=== PATIENT | male | born 1970 | race African-American/Black ===

== ENCOUNTER 2018-02-21 20:37 | Inpatient (IN) | payer OTHER ==
--- NOTE | 2018-02-21 21:00 | HP ---
COWS - Scale Resting Pulse: 1= [place] 81-100 Sweatin=Flushed/Facial Moisture Restless Observation: 1= Difficult to Sit Still Pupil Size: 1= Pupils >than Normal Bone or Joint Aches: 2= Severe Diffuse Aches Runny Nose/ Eye Tearin= Nasal Congestion GI Upset > 30mins: 2= Nausea/Diarrhea Tremor Observation: 2= Slight Tremor Visible Yawning Observation: 1= 1-2x During Session Anxiety or Irritability: 1=Feels Anxious/Irritable Goose Flesh Skin: 0=Smooth Skin COWS Score: 14 CIWA Score - Admission Criteria [facility] Guidelines: Admission for Medically Managed Detox: Requires at least one of the followin. CIWA greater than 12 2. Seizures within the past 24 hours 3. Delirium tremens within the past 24 hours 4. Hallucinations within the past 24 hours 5. Acute intervention needed for co occurring medical disorder 6. Acute intervention needed for co occurring psychiatric disorder 7. Severe withdrawal that cannot be handled at a lower level of care (continued vomiting, continued diarrhea, abnormal vital signs) requiring intravenous medication and/or fluids 8. Admission ROS S - HPI Chief Complaint: DEPENDENT ON HEROIN, PCP AND OCC. COCAINE Allergies/Adverse Reactions: Allergies Allergy/AdvReac Type Severity Reaction Status Date / Time No Known Allergies Allergy Verified 07/09/15 21:12 History of Present Illness: THE PT. IS REQUESTING ADMISSION TO THE DETOX AND REHAB. UNITS AND CAME FOR H AND PE Exam Limitations: No Limitations - Ebola screening Have you traveled outside of the country in the last 21 days: No (N) Have you had contact with anyone from an Ebola affected area: No Have you been sick,other than usual withdrawal symptoms: No Do you have a fever: No - Review of Systems Constitutional: See HPI, Loss of Appetite, Malaise, Weakness, Unintentional Wgt. Loss EENT: reports: See HPI Respiratory: reports: See HPI Cardiac: reports: See HPI GI: reports: See HPI, Nausea, Poor Appetite, Poor Fluid Intake, Abdominal cramping : reports: See HPI, Frequency, Urgency Musculoskeletal: reports: See HPI, Muscle Pain, Muscle Weakness Integumentary: reports: See HPI, Sweating Neuro: reports: See HPI, Headache, Tremors, Weakness Endocrine: reports: See HPI, Increased Thirst, Increased Urine, Unexplained Weight Loss Hematology: reports: See HPI Psychiatric: reports: Judgement Intact, Orientated x3, Anxious, Depressed Patient History - Patient Medical History Hx Asthma: No Hx Chronic Obstructive Pulmonary Disease (COPD): No Hx Cardiac Disorders: No Hx Hypertension: No Hx Seizures: No Hx Diabetes: Yes Hx Gastrointestinal Disorders: No Hx Genitourinary Disorders: No Hx Sexually Transmitted Disorders: No Hx Renal Disease (ESRD): No Hx Human Immunodeficiency Virus (HIV): No Hx Hepatitis C: No Hx Depression: Yes (ANXIETY DISORDER, ADHD AND PTSD) Hx Suicide Attempt: No - Patient Surgical History Past Surgical History: Yes Hx Neurologic Surgery: Yes (FOR HYDROCEPHALUS) Hx Orthopedic Surgery: Yes (SPINAL FUSION AT [facility] 02/2010) - PPD History Date: 07/11/15 - Smoking Cessation Smoking history: Current every day smoker Have you smoked in the past 12 months: Yes Aproximately how many cigarettes per day: 15 Hx Chewing Tobacco Use: No Initiated information on smoking cessation: Yes 'Breaking Loose' booklet given: 02/21/18 - Substances Abused Heroin Route: Injection Frequency: Daily Amount used: 10B/D Age of first use: 31 Date of Last Use: 02/20/18 Cocaine Route: Smoking Frequency: 1-3 times last 30 days Amount used: $20/ONCE IN 3 MONTHS Age of first use: 21 Date of Last Use: 02/20/18 PCP Route: Smoking Frequency: Daily Amount used: 1-2 J/D Age of first use: 21 Date of Last Use: 02/21/18 Family Disease History - Family Disease History Family History: Denies Admission Physical Exam [facility] - Physical General Appearance: Yes: No Apparent Distress, Appropriately Dressed, Thin, Tremorous, Anxious HEENTM: Yes: Hearing grossly Normal, Normocephalic, Normal Voice, PUMA, Pharynx Normal Respiratory: Yes: Chest Non-Tender, Lungs Clear, Decreased Breath Sounds, No Respiratory Distress, No Accessory Muscle Use Neck: Yes: No masses,lesions,Nodules, Supple, Trachea in good position Breast: Yes: Breast Exam Deferred, Axillae without masses Cardiology: Yes: Regular Rhythm, S1, S2, Tachycardia Abdominal: Yes: Normal Bowel Sounds, Non Tender, Flat, Soft Back: Yes: Normal Inspection Musculoskeletal: Yes: full range of Motion, Muscle Pain, Muscle weakness Extremities: Yes: Normal Capillary Refill, Normal Range of Motion, Non-Tender, Tremors Neurological: Yes: plant hr manager II-XII NML intact, Fully Oriented, Alert, Motor Strength 5/5, Normal Response, Depressed Affect Integumentary: Yes: Normal Color, Warm, Moist, Track Cohen Lymphatic: Yes: Within Normal Limits - Diagnostic (1) PCP dependence Current Visit: Yes Status: Chronic (2) Nicotine dependence Current Visit: No Status: Chronic Qualifiers: Nicotine product type: cigarettes Substance use status: uncomplicated Qualified Code(s): F17.210 - Nicotine dependence, cigarettes, uncomplicated (3) Opioid dependence with withdrawal Current Visit: No Status: Chronic (4) ADHD (attention deficit hyperactivity disorder) Current Visit: No Status: Chronic Qualifiers: Attention deficit-hyperactivity disorder type: unspecified Qualified Code(s ): F90.9 - Attention-deficit hyperactivity disorder, unspecified type (5) Anxiety and depression Current Visit: No Status: Chronic (6) Diabetes 1.5, managed as type 2 Current Visit: No Status: Chronic (7) Heroin dependence Current Visit: No Status: Chronic (8) PTSD (post-traumatic stress disorder) Current Visit: No Status: Chronic Cleared for Admission S - Detox or Rehab [facility] Level of Care: Medically Supervised Detox Regimen/Protocol: Methadone S Breath Alcohol Content Breath Alcohol Content: 0
[2018-02-21] MEDS ORDERED: MENTHOL/PHENOL 1 EACH UD MM PRN (21:06)
[2018-02-21] MEDS ORDERED: MAGNESIUM HYDROX 2400MG/30ML ORAL SUSPENSION 30 ML CUP PO PRN (21:06)
[2018-02-21] MEDS ORDERED: MAGNESIUM CITRATE 300 ML BOTTLE PO PRN (21:06)
[2018-02-21] MEDS ORDERED: P-EPHED 60MG/TRIPROLIDI 2.5MG TABLET PO PRN (21:06)
[2018-02-21] MEDS ORDERED: LOPERAMIDE HCL 2 MG CAPSULE PO PRN (21:06)
[2018-02-21] MEDS ORDERED: METHADONE HCL 10 MG TABLET (FOR DETOX USE ONLY) PO ONE ×2 (21:06→23:00)
[2018-02-21] MEDS ORDERED: guaiFENesin/D-METHORPHAN HB 10 ML UNIT-DOSE CUPS PO PRN (21:06)
[2018-02-21 21:27] VITALS: BMI 22.2
[2018-02-21 23:07] LABS: URINE APPEARANCE CLEAR; URINE BILIRUBIN NEGATIVE (<2.0 mg/dL); URINE COLOR STRAW; URINE GLUCOSE (UA) 3+ (NEGATIVE); URINE KETONE TRACE (NEGATIVE); URINE LEUK ESTERASE NEGATIVE (NEGATIVE); URINE NITRITE NEGATIVE (NEGATIVE); URINE PROTEIN NEGATIVE (NEGATIVE); URINE UROBILINOGEN NEGATIVE mg/dL (0.2-1.0)
[2018-02-21] MEDS: INSULIN SLIDING SCALE (NOVOLOG) 1 VIAL SQ SCH (23:26)
[2018-02-21] MEDS: THIAMINE HCL 100 MG TABLET (FP) PO SCH (23:28)
[2018-02-21] MEDS: diazePAM 5 MG TABLET PO PRN (23:28)
[2018-02-22] MEDS: INSULIN SLIDING SCALE (NOVOLOG) 1 VIAL SQ SCH ×4 (06:57→22:31)
[2018-02-22] MEDS ORDERED: INSULIN SLIDING SCALE (NOVOLOG) 1 VIAL SQ ONE ×3 (07:05→16:24)
[2018-02-22] MEDS ORDERED: METHADONE HCL 10 MG TABLET (FOR DETOX USE ONLY) PO ONE (10:00)
[2018-02-22 10:20] LABS: BASO % 0.7 % (0-2.0); EOS % 2.2 % (0-4.5); HEMOGLOBIN 12.9 GM/dL (11.7-16.9); LYMPH % 48.9 % (8-40); MCH 24.3 pg (25.7-33.7); MCHC 31.5 g/dl (32.0-35.9); MEAN CELL VOLUME 77.1 fl (80-96); MEAN PLT VOLUME 6.6 fl (7.5-11.1); MONO % 5.6 % (3.8-10.2); NEUT % 42.6 % (42.8-82.8); PLATELET COUNT 364 K/MM3 (134-434); RBC 5.32 M/mm3 (4.00-5.60); RDW 14.8 % (11.9-15.9)
[2018-02-22] MEDS: NICOTINE 21 MG/24 HOURS TOPICAL PATCH TD SCH (10:27)
[2018-02-22] MEDS: PRENATAL VITAMINS W/ FOLIC ACID TABLET (FP) PO SCH (10:27)
[2018-02-22] MEDS: diazePAM 5 MG TABLET PO PRN ×3 (10:27→22:30)
[2018-02-22 10:36] LABS: ALBUMIN 3.4 g/dl (3.4-5.0); ALK PHOS 143 U/L (45-117); ANION GAP 10 MMOL/L (8-16); BILIRUBIN,TOTAL 0.3 mg/dL (0.2-1); BLOOD UREA NITROGEN 20 mg/dL (7-18); CALCIUM 8.8 mg/dL (8.5-10.1); CHLORIDE 97 mmol/L (98-107); CO2 26 mmol/L (21-32); POTASSIUM 4.2 mmol/L (3.5-5.1); SGOT/AST 14 U/L (15-37); SGPT/ALT 24 U/L (13-61); SODIUM 133 mmol/L (136-145); TOT PROT 6.3 g/dl (6.4-8.2)
[2018-02-22 11:18] LABS: GLUCOSE,RANDOM 370 mg/dL (74-106)
[2018-02-22 12:27] LABS: ANISOCYTOSIS 1+; MACROCYTOSIS 0; PLATELET ESTIMATE NORMAL
--- NOTE | 2018-02-22 14:44 | PN ---
BHS COWS - Scale Resting Pulse: 0= [place] 80 or Below Sweatin=Flushed/Facial Moisture Restless Observation: 1= Difficult to Sit Still Pupil Size: 0= Normal to Room Light Bone or Joint Aches: 0= None Runny Nose/ Eye Tearin= None GI Upset > 30mins: 0= None Tremor Observation of Outstretched Hands: 2= Slight Tremor Visible Yawning Observation: 0= None Anxiety or Irritability: 1=Feels Anxious/Irritable Goose Flesh Skin: 0=Smooth Skin COWS Score: 6 BHS Progress Note (SOAP) Subjective: States sweating. C/o increased anxiety. Denies nausea/vomiting. Objective: A&O x 3. Mild tremors of outstretched hands. Abd S/NT/BS+ Vital Signs 02/22/18 02/22/18 09:04 13:19 Temperature 96.9 F L 97.8 F Pulse Rate 64 84 Respiratory 18 18 Rate Blood Pressure 90/56 L 95/70 Laboratory Last Values WBC 10.0 K/mm3 (4.0-10.0) 02/22/18 07:00 RBC 5.32 M/mm3 (4.00-5.60) 02/22/18 07:00 Hgb 12.9 GM/dL (11.7-16.9) 02/22/18 07:00 Hct 41.0 % (35.4-49) 02/22/18 07:00 MCV 77.1 fl (80-96) L 02/22/18 07:00 MCH 24.3 pg (25.7-33.7) L D 02/22/18 07:00 MCHC 31.5 g/dl (32.0-35.9) L 02/22/18 07:00 RDW 14.8 % (11.9-15.9) D 02/22/18 07:00 Plt Count 364 K/MM3 (134-434) 02/22/18 07:00 MPV 6.6 fl (7.5-11.1) L 02/22/18 07:00 Absolute Neuts (auto) 4.3 K/mm3 (1.5-8.0) 02/22/18 07:00 Neutrophils % 42.6 % (42.8-82.8) L 02/22/18 07:00 Neutrophils % (Manual) 45.5 % (42.8-82.8) 02/22/18 07:00 Band Neutrophils % 0.0 % 02/22/18 07:00 Lymphocytes % 48.9 % (8-40) H 02/22/18 07:00 Lymphocytes % (Manual) 43.6 % (8-40) H 02/22/18 07:00 Monocytes % 5.6 % (3.8-10.2) 02/22/18 07:00 Monocytes % (Manual) 5 % (3.8-10.2) 02/22/18 07:00 Eosinophils % 2.2 % (0-4.5) 02/22/18 07:00 Eosinophils % (Manual) 3.0 % (0-4.5) 02/22/18 07:00 Basophils % 0.7 % (0-2.0) 02/22/18 07:00 Basophils % (Manual) 1.0 % (0-2.0) 02/22/18 07:00 Myelocytes % (Man) 0 % (0-2) 02/22/18 07:00 Promyelocytes % (Man) 0 % (0-2) 02/22/18 07:00 Blast Cells % (Manual) 0 % (0-0) 02/22/18 07:00 Nucleated RBC % 0 % (0-0) 02/22/18 07:00 Metamyelocytes 0 % (0-2) 02/22/18 07:00 Hypochromia 0 02/22/18 07:00 Platelet Estimate Normal 02/22/18 07:00 Polychromasia 0 02/22/18 07:00 Poikilocytosis 0 02/22/18 07:00 Anisocytosis 1+ 02/22/18 07:00 Microcytosis 1+ 02/22/18 07:00 Macrocytosis 0 02/22/18 07:00 Sodium 133 mmol/L (136-145) L 02/22/18 07:00 Potassium 4.2 mmol/L (3.5-5.1) 02/22/18 07:00 Chloride 97 mmol/L (98-107) L 02/22/18 07:00 Carbon Dioxide 26 mmol/L (21-32) 02/22/18 07:00 Anion Gap 10 MMOL/L (8-16) 02/22/18 07:00 BUN 20 mg/dL (7-18) H 02/22/18 07:00 Creatinine 1.0 mg/dL (0.55-1.3) 02/22/18 07:00 Creat Clearance w eGFR > 60 (>60) 02/22/18 07:00 POC Glucometer 380 UNITS (80-120) 02/22/18 11:23 Random Glucose 370 mg/dL (74-106) H* 02/22/18 07:00 Calcium 8.8 mg/dL (8.5-10.1) 02/22/18 07:00 Total Bilirubin 0.3 mg/dL (0.2-1) 02/22/18 07:00 AST 14 U/L (15-37) L 02/22/18 07:00 ALT 24 U/L (13-61) 02/22/18 07:00 Alkaline Phosphatase 143 U/L (45-117) H 02/22/18 07:00 Total Protein 6.3 g/dl (6.4-8.2) L 02/22/18 07:00 Albumin 3.4 g/dl (3.4-5.0) 02/22/18 07:00 Urine Color Straw 02/21/18 22:33 Urine Appearance Clear 02/21/18 22: Urine pH 6.0 (5.0-8.0) 02/21/18 22:33 Ur Specific [place] 1.038 (1.010-1.035) H 02/21/18 22:33 Urine Protein Negative (NEGATIVE) 02/21/18 22:33 Urine Glucose (UA) 3+ (NEGATIVE) H 02/21/18 22:33 Urine Ketones Trace (NEGATIVE) H 02/21/18 22:33 Urine Blood Negative (NEGATIVE) 02/21/18 22: Urine Nitrite Negative (NEGATIVE) 02/21/18 22: Urine Bilirubin Negative (<2.0 mg/dL) 02/21/18 22: Urine Urobilinogen Negative mg/dL (0.2-1.0) 02/21/18 22:33 Ur Leukocyte Esterase Negative (NEGATIVE) 02/21/18 22: RPR Titer Nonreactive (NONREACTIVE) 02/22/18 07:00 Labs reviewed. Assessment: Withdrawal symptoms Uncontrolled DM Plan: Continue detox protocol Continue sliding scale insulin coverage. Begin Metformin 500 mg BID in am.
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
[2018-02-22] MEDS: THIAMINE HCL 100 MG TABLET (FP) PO SCH (22:30)
[2018-02-22] MEDS: QUEtiapine FUMARATE 50 MG TABLET PO SCH ×2 (22:30→22:50)
--- NOTE | 2018-02-22 23:53 | EKG ---
Test Reason : Blood Pressure : / mmHG Vent. Rate : 069 BPM Atrial Rate : 069 BPM P-R Int : 146 ms QRS Dur : 080 ms QT Int : 396 ms P-R-T Axes : 071 074 075 degrees QTc Int : 424 ms NORMAL SINUS RHYTHM EARLY REPOLARIZATION NORMAL ECG NO PREVIOUS ECGS AVAILABLE Confirmed by JIMI DOTSON MD ([id number]) on 02/22/2018 11:53:37 PM Referred By: Confirmed By:JIMI DOTSON MD
[2018-02-23] MEDS: diazePAM 5 MG TABLET PO PRN ×3 (05:05→21:00)
[2018-02-23] MEDS ORDERED: metFORMIN HCL 500 MG TABLET (FP) PO SCH (07:00)
[2018-02-23] MEDS ORDERED: INSULIN SLIDING SCALE (NOVOLOG) 1 VIAL SQ ONE ×2 (07:45→11:35)
[2018-02-23] MEDS: INSULIN SLIDING SCALE (NOVOLOG) 1 VIAL SQ SCH ×4 (07:54→23:36)
[2018-02-23] MEDS ORDERED: METHADONE HCL 5 MG TABLET (FOR DETOX USE ONLY) PO ONE (10:00)
[2018-02-23] MEDS: PRENATAL VITAMINS W/ FOLIC ACID TABLET (FP) PO SCH (10:05)
[2018-02-23] MEDS: NICOTINE 21 MG/24 HOURS TOPICAL PATCH TD SCH (10:06)
--- NOTE | 2018-02-23 11:02 | PN ---
BHS COWS - Scale Resting Pulse: 1= [place] 81-100 Sweatin= Chills/Flushing Restless Observation: 3= Extraneous Movement Pupil Size: 0= Normal to Room Light Bone or Joint Aches: 2= Severe Diffuse Aches Runny Nose/ Eye Tearin= Runny Nose/Eyes GI Upset > 30mins: 3= Vomiting/Diarrhea Tremor Observation of Outstretched Hands: 2= Slight Tremor Visible Yawning Observation: 0= None Anxiety or Irritability: 2=Irritable/Anxious Goose Flesh Skin: 0=Smooth Skin COWS Score: 16 BHS Progress Note (SOAP) Subjective: Sweating, runny nose, stomach ache, interrupted sleep Objective: 02/23/18 10:55 Last Vital Signs Temp Pulse Resp BP Pulse Ox 98.6 F 88 18 103/66 02/23/18 10:02 02/23/18 10:02 02/23/18 10:02 02/23/18 10:02 Laboratory Tests 02/21/18 02/21/18 02/21/18 21:49 22:33 23:23 WBC RBC Hgb Hct MCV MCH MCHC RDW Plt Count MPV Absolute Neuts (auto) Neutrophils % Neutrophils % (Manual) Band Neutrophils % Lymphocytes % Lymphocytes % (Manual) Monocytes % Monocytes % (Manual) Eosinophils % Eosinophils % (Manual) Basophils % Basophils % (Manual) Myelocytes % (Man) Promyelocytes % (Man) Blast Cells % (Manual) Nucleated RBC % Metamyelocytes Hypochromia Platelet Estimate Polychromasia Poikilocytosis Anisocytosis Microcytosis Macrocytosis Sodium Potassium Chloride Carbon Dioxide Anion Gap BUN Creatinine Creat Clearance w eGFR POC Glucometer 447 514 Random Glucose Calcium Total Bilirubin AST ALT Alkaline Phosphatase Total Protein Albumin Urine Color Straw Urine Appearance Clear Urine pH 6.0 Ur Specific [place] 1.038 H Urine Protein Negative Urine Glucose (UA) 3+ H Urine Ketones Trace H Urine Blood Negative Urine Nitrite Negative Urine Bilirubin Negative Urine Urobilinogen Negative Ur Leukocyte Esterase Negative RPR Titer 02/22/18 02/22/18 02/22/18 06:52 07:00 07:00 WBC RBC Hgb Hct MCV MCH MCHC RDW Plt Count MPV Absolute Neuts (auto) Neutrophils % Neutrophils % (Manual) Band Neutrophils % Lymphocytes % Lymphocytes % (Manual) Monocytes % Monocytes % (Manual) Eosinophils % Eosinophils % (Manual) Basophils % Basophils % (Manual) Myelocytes % (Man) Promyelocytes % (Man) Blast Cells % (Manual) Nucleated RBC % Metamyelocytes Hypochromia Platelet Estimate Polychromasia Poikilocytosis Anisocytosis Microcytosis Macrocytosis Sodium 133 L Potassium 4.2 Chloride 97 L Carbon Dioxide 26 Anion Gap 10 BUN 20 H Creatinine 1.0 Creat Clearance w eGFR > 60 POC Glucometer > 600 Random Glucose 370 H* Calcium 8.8 Total Bilirubin 0.3 AST 14 L ALT 24 Alkaline Phosphatase 143 H Total Protein 6.3 L Albumin 3.4 Urine Color Urine Appearance Urine pH Ur Specific [place] Urine Protein Urine Glucose (UA) Urine Ketones Urine Blood Urine Nitrite Urine Bilirubin Urine Urobilinogen Ur Leukocyte Esterase RPR Titer Nonreactive 02/22/18 02/22/18 02/22/18 07:00 11:23 16:22 WBC 10.0 RBC 5.32 Hgb 12.9 Hct 41.0 MCV 77.1 L MCH 24.3 L D MCHC 31.5 L RDW 14.8 D Plt Count 364 MPV 6.6 L Absolute Neuts (auto) 4.3 Neutrophils % 42.6 L Neutrophils % (Manual) 45.5 Band Neutrophils % 0.0 Lymphocytes % 48.9 H Lymphocytes % (Manual) 43.6 H Monocytes % 5.6 Monocytes % (Manual) 5 Eosinophils % 2.2 Eosinophils % (Manual) 3.0 Basophils % 0.7 Basophils % (Manual) 1.0 Myelocytes % (Man) 0 Promyelocytes % (Man) 0 Blast Cells % (Manual) 0 Nucleated RBC % 0 Metamyelocytes 0 Hypochromia 0 Platelet Estimate Normal Polychromasia 0 Poikilocytosis 0 Anisocytosis 1+ Microcytosis 1+ Macrocytosis 0 Sodium Potassium Chloride Carbon Dioxide Anion Gap BUN Creatinine Creat Clearance w eGFR POC Glucometer 380 313 Random Glucose Calcium Total Bilirubin AST ALT Alkaline Phosphatase Total Protein Albumin Urine Color Urine Appearance Urine pH Ur Specific [place] Urine Protein Urine Glucose (UA) Urine Ketones Urine Blood Urine Nitrite Urine Bilirubin Urine Urobilinogen Ur Leukocyte Esterase RPR Titer 02/22/18 02/22/18 02/23/18 21:34 23:54 07:40 WBC RBC Hgb Hct MCV MCH MCHC RDW Plt Count MPV Absolute Neuts (auto) Neutrophils % Neutrophils % (Manual) Band Neutrophils % Lymphocytes % Lymphocytes % (Manual) Monocytes % Monocytes % (Manual) Eosinophils % Eosinophils % (Manual) Basophils % Basophils % (Manual) Myelocytes % (Man) Promyelocytes % (Man) Blast Cells % (Manual) Nucleated RBC % Metamyelocytes Hypochromia Platelet Estimate Polychromasia Poikilocytosis Anisocytosis Microcytosis Macrocytosis Sodium Potassium Chloride Carbon Dioxide Anion Gap BUN Creatinine Creat Clearance w eGFR POC Glucometer 595 589 > 600 Random Glucose Calcium Total Bilirubin AST ALT Alkaline Phosphatase Total Protein Albumin Urine Color Urine Appearance Urine pH Ur Specific [place] Urine Protein Urine Glucose (UA) Urine Ketones Urine Blood Urine Nitrite Urine Bilirubin Urine Urobilinogen Ur Leukocyte Esterase RPR Titer Labs reviewed: elevated glucose due to DMT2, bun 20, UA: 3+ glucose Assessment: 02/23/18 10:58 Withdrawal symptoms Noted with hyperglycemia, azotemia and glycosuria Plan: Continue detox Hyperglycemia,secondary to DMT2: increase metformin to 1g PO bid, resume lantus 30 units sq qhs (give levemir while hospitalized as lantus not available), continue sliding scale insulin coverage and finger stick, continue to monitor Azotemia:encouraged to drink more water Glycosuria: encouraged PO water intake, repeat UA
[2018-02-23] MEDS ORDERED: Insulin (LOG) Aspart 100 UNITS/ML VIAL SQ ONE (11:15)
[2018-02-23 15:28] LABS: ANION GAP 10 MMOL/L (8-16); BLOOD UREA NITROGEN 21 mg/dL (7-18); CALCIUM 8.6 mg/dL (8.5-10.1); CHLORIDE 94 mmol/L (98-107); CO2 28 mmol/L (21-32); CREATININE 1.1 mg/dL (0.55-1.3); POTASSIUM 4.3 mmol/L (3.5-5.1); SODIUM 132 mmol/L (136-145)
[2018-02-23 15:42] LABS: GLUCOSE,RANDOM 487 mg/dL (74-106)
[2018-02-23] MEDS: metFORMIN HCL 500 MG TABLET (FP) PO SCH (17:47)
[2018-02-23] MEDS: INSULIN (LEVEMIR) 100 UNITS/ML UNITS SQ SCH (21:22)
[2018-02-23] MEDS: THIAMINE HCL 100 MG TABLET (FP) PO SCH (21:27)
[2018-02-23] MEDS: QUEtiapine FUMARATE 50 MG TABLET PO SCH (21:30)
[2018-02-24] MEDS: metFORMIN HCL 500 MG TABLET (FP) PO SCH ×2 (08:03→17:29)
[2018-02-24] MEDS: INSULIN SLIDING SCALE (NOVOLOG) 1 VIAL SQ SCH ×4 (08:07→22:49)
[2018-02-24] MEDS: PRENATAL VITAMINS W/ FOLIC ACID TABLET (FP) PO SCH (09:41)
[2018-02-24] MEDS: NICOTINE 21 MG/24 HOURS TOPICAL PATCH TD SCH (09:42)
[2018-02-24] MEDS ORDERED: METHADONE HCL 5 MG TABLET (FOR DETOX USE ONLY) PO ONE (10:00)
[2018-02-24] MEDS ORDERED: INSULIN SLIDING SCALE (NOVOLOG) 1 VIAL SQ ONE (11:27)
--- NOTE | 2018-02-24 14:49 | PN ---
[facility] Progress Note (SOAP) Subjective: Tremor, chills, sweating, interrupted sleep. Patient is noncompliant with finger sticks and with diabetic diet. Chairman educated patient about importance of managing his diabetes including adhering to diabetic diet, diabetic regimen, exercising as tolerated to maintain healthy weight and avoiding/decreasing sugary and starchy intake in preventing complications such as blindness, amputation and kidney failure. Patient verbalized understanding. Patient instructed to follow up with his PCP after discharge for management of his diabetes. Objective: 02/24/18 14:47 Last Vital Signs Temp Pulse Resp BP Pulse Ox 98 F 87 18 130/73 02/24/18 13:41 02/24/18 13:41 02/24/18 13:41 02/24/18 13:41 Laboratory Tests 02/21/18 02/21/18 02/21/18 21:49 22:33 23:23 WBC RBC Hgb Hct MCV MCH MCHC RDW Plt Count MPV Absolute Neuts (auto) Neutrophils % Neutrophils % (Manual) Band Neutrophils % Lymphocytes % Lymphocytes % (Manual) Monocytes % Monocytes % (Manual) Eosinophils % Eosinophils % (Manual) Basophils % Basophils % (Manual) Myelocytes % (Man) Promyelocytes % (Man) Blast Cells % (Manual) Nucleated RBC % Metamyelocytes Hypochromia Platelet Estimate Polychromasia Poikilocytosis Anisocytosis Microcytosis Macrocytosis Sodium Potassium Chloride Carbon Dioxide Anion Gap BUN Creatinine Creat Clearance w eGFR POC Glucometer 447 514 Random Glucose Calcium Total Bilirubin AST ALT Alkaline Phosphatase Total Protein Albumin Urine Color Straw Urine Appearance Clear Urine pH 6.0 Ur Specific [place] 1.038 H Urine Protein Negative Urine Glucose (UA) 3+ H Urine Ketones Trace H Urine Blood Negative Urine Nitrite Negative Urine Bilirubin Negative Urine Urobilinogen Negative Ur Leukocyte Esterase Negative RPR Titer 02/22/18 02/22/18 02/22/18 06:52 07:00 07:00 WBC RBC Hgb Hct MCV MCH MCHC RDW Plt Count MPV Absolute Neuts (auto) Neutrophils % Neutrophils % (Manual) Band Neutrophils % Lymphocytes % Lymphocytes % (Manual) Monocytes % Monocytes % (Manual) Eosinophils % Eosinophils % (Manual) Basophils % Basophils % (Manual) Myelocytes % (Man) Promyelocytes % (Man) Blast Cells % (Manual) Nucleated RBC % Metamyelocytes Hypochromia Platelet Estimate Polychromasia Poikilocytosis Anisocytosis Microcytosis Macrocytosis Sodium 133 L Potassium 4.2 Chloride 97 L Carbon Dioxide 26 Anion Gap 10 BUN 20 H Creatinine 1.0 Creat Clearance w eGFR > 60 POC Glucometer > 600 Random Glucose 370 H* Calcium 8.8 Total Bilirubin 0.3 AST 14 L ALT 24 Alkaline Phosphatase 143 H Total Protein 6.3 L Albumin 3.4 Urine Color Urine Appearance Urine pH Ur Specific [place] Urine Protein Urine Glucose (UA) Urine Ketones Urine Blood Urine Nitrite Urine Bilirubin Urine Urobilinogen Ur Leukocyte Esterase RPR Titer Nonreactive 02/22/18 02/22/18 02/22/18 07:00 11:23 16:22 WBC 10.0 RBC 5.32 Hgb 12.9 Hct 41.0 MCV 77.1 L MCH 24.3 L D MCHC 31.5 L RDW 14.8 D Plt Count 364 MPV 6.6 L Absolute Neuts (auto) 4.3 Neutrophils % 42.6 L Neutrophils % (Manual) 45.5 Band Neutrophils % 0.0 Lymphocytes % 48.9 H Lymphocytes % (Manual) 43.6 H Monocytes % 5.6 Monocytes % (Manual) 5 Eosinophils % 2.2 Eosinophils % (Manual) 3.0 Basophils % 0.7 Basophils % (Manual) 1.0 Myelocytes % (Man) 0 Promyelocytes % (Man) 0 Blast Cells % (Manual) 0 Nucleated RBC % 0 Metamyelocytes 0 Hypochromia 0 Platelet Estimate Normal Polychromasia 0 Poikilocytosis 0 Anisocytosis 1+ Microcytosis 1+ Macrocytosis 0 Sodium Potassium Chloride Carbon Dioxide Anion Gap BUN Creatinine Creat Clearance w eGFR POC Glucometer 380 313 Random Glucose Calcium Total Bilirubin AST ALT Alkaline Phosphatase Total Protein Albumin Urine Color Urine Appearance Urine pH Ur Specific [place] Urine Protein Urine Glucose (UA) Urine Ketones Urine Blood Urine Nitrite Urine Bilirubin Urine Urobilinogen Ur Leukocyte Esterase RPR Titer 02/22/18 02/22/18 02/23/18 21:34 23:54 07:40 WBC RBC Hgb Hct MCV MCH MCHC RDW Plt Count MPV Absolute Neuts (auto) Neutrophils % Neutrophils % (Manual) Band Neutrophils % Lymphocytes % Lymphocytes % (Manual) Monocytes % Monocytes % (Manual) Eosinophils % Eosinophils % (Manual) Basophils % Basophils % (Manual) Myelocytes % (Man) Promyelocytes % (Man) Blast Cells % (Manual) Nucleated RBC % Metamyelocytes Hypochromia Platelet Estimate Polychromasia Poikilocytosis Anisocytosis Microcytosis Macrocytosis Sodium Potassium Chloride Carbon Dioxide Anion Gap BUN Creatinine Creat Clearance w eGFR POC Glucometer 595 589 > 600 Random Glucose Calcium Total Bilirubin AST ALT Alkaline Phosphatase Total Protein Albumin Urine Color Urine Appearance Urine pH Ur Specific [place] Urine Protein Urine Glucose (UA) Urine Ketones Urine Blood Urine Nitrite Urine Bilirubin Urine Urobilinogen Ur Leukocyte Esterase RPR Titer 02/23/18 02/23/18 02/23/18 11:08 11:20 16:28 WBC RBC Hgb Hct MCV MCH MCHC RDW Plt Count MPV Absolute Neuts (auto) Neutrophils % Neutrophils % (Manual) Band Neutrophils % Lymphocytes % Lymphocytes % (Manual) Monocytes % Monocytes % (Manual) Eosinophils % Eosinophils % (Manual) Basophils % Basophils % (Manual) Myelocytes % (Man) Promyelocytes % (Man) Blast Cells % (Manual) Nucleated RBC % Metamyelocytes Hypochromia Platelet Estimate Polychromasia Poikilocytosis Anisocytosis Microcytosis Macrocytosis Sodium 132 L Potassium 4.3 Chloride 94 L Carbon Dioxide 28 Anion Gap 10 BUN 21 H Creatinine 1.1 Creat Clearance w eGFR > 60 POC Glucometer > 600 521 Random Glucose 487 H* Calcium 8.6 Total Bilirubin AST ALT Alkaline Phosphatase Total Protein Albumin Urine Color Urine Appearance Urine pH Ur Specific [place] Urine Protein Urine Glucose (UA) Urine Ketones Urine Blood Urine Nitrite Urine Bilirubin Urine Urobilinogen Ur Leukocyte Esterase RPR Titer 02/23/18 02/24/18 20:49 11:08 WBC RBC Hgb Hct MCV MCH MCHC RDW Plt Count MPV Absolute Neuts (auto) Neutrophils % Neutrophils % (Manual) Band Neutrophils % Lymphocytes % Lymphocytes % (Manual) Monocytes % Monocytes % (Manual) Eosinophils % Eosinophils % (Manual) Basophils % Basophils % (Manual) Myelocytes % (Man) Promyelocytes % (Man) Blast Cells % (Manual) Nucleated RBC % Metamyelocytes Hypochromia Platelet Estimate Polychromasia Poikilocytosis Anisocytosis Microcytosis Macrocytosis Sodium Potassium Chloride Carbon Dioxide Anion Gap BUN Creatinine Creat Clearance w eGFR POC Glucometer 501 585 Random Glucose Calcium Total Bilirubin AST ALT Alkaline Phosphatase Total Protein Albumin Urine Color Urine Appearance Urine pH Ur Specific [place] Urine Protein Urine Glucose (UA) Urine Ketones Urine Blood Urine Nitrite Urine Bilirubin Urine Urobilinogen Ur Leukocyte Esterase RPR Titer Labs reviewed Assessment: 02/24/18 14:47 Withdrawal symptoms Plan: Continue detox Encouraged PO water intake Continue diabetic regimen
[2018-02-24] MEDS: diazePAM 5 MG TABLET PO PRN (17:34)
[2018-02-24] MEDS: MAG HYDROX/AL HYDROX/SIMETH 30 ML UNIT-DOSE CUP PO PRN (19:57)
--- NOTE | 2018-02-24 20:27 | PN ---
[facility] Progress Note (SOAP) Subjective: C/o nausea and vomiting. Vomiting food and fluids. States it's because of withdrawal symptoms. Denies abdominal pain. Objective: A&O x 3. Abdomen soft. Afebrile. Vital Signs 02/24/18 02/24/18 13:41 17:46 Temperature 98 F 97.5 F L Pulse Rate 87 82 Respiratory 18 16 Rate Blood Pressure 130/73 100/64 CMP Sodium 132 mmol/L (136-145) L 02/23/18 11:20 Potassium 4.3 mmol/L (3.5-5.1) 02/23/18 11:20 Chloride 94 mmol/L (98-107) L 02/23/18 11:20 Carbon Dioxide 28 mmol/L (21-32) 02/23/18 11:20 Anion Gap 10 MMOL/L (8-16) 02/23/18 11:20 BUN 21 mg/dL (7-18) H 02/23/18 11:20 Creatinine 1.1 mg/dL (0.55-1.3) 02/23/18 11:20 Creat Clearance w eGFR > 60 (>60) 02/23/18 11:20 POC Glucometer 359 UNITS (80-120) 02/24/18 19:55 Random Glucose 487 mg/dL (74-106) H* 02/23/18 11:20 Calcium 8.6 mg/dL (8.5-10.1) 02/23/18 11:20 Total Bilirubin 0.3 mg/dL (0.2-1) 02/22/18 07:00 AST 14 U/L (15-37) L 02/22/18 07:00 ALT 24 U/L (13-61) 02/22/18 07:00 Alkaline Phosphatase 143 U/L (45-117) H 02/22/18 07:00 Total Protein 6.3 g/dl (6.4-8.2) L 02/22/18 07:00 Albumin 3.4 g/dl (3.4-5.0) 02/22/18 07:00 Labs reviewed. Assessment: Withdrawal symptoms. Vomiting. Plan: Continue detox. Tigan as prescribed. Hyperglycemia. Encourage avoidance of hi glucose food/drinks.
[2018-02-24] MEDS: TRIMETHOBENZAMIDE HCL 200MG/2ML INJ IM PRN (20:38)
[2018-02-24] MEDS ORDERED: INSULIN (NOVOLOG) ASPART 100 UNITS/ML 10ML VIAL SQ ONE (21:49)
[2018-02-24] MEDS: INSULIN (LEVEMIR) 100 UNITS/ML UNITS SQ SCH (22:16)
[2018-02-24] MEDS: QUEtiapine FUMARATE 50 MG TABLET PO SCH (22:35)
[2018-02-24] MEDS: MELATONIN 5 MG TABLETS PO PRN (22:49)
[2018-02-24] MEDS: hydrOXYzine PAMOATE 25 MG CAPSULE (FP) PO PRN (22:50)
[2018-02-24] MEDS ORDERED: ONDANSETRON *ODT* 4 MG TABLET SL ONE (23:03)
[2018-02-24] MEDS: THIAMINE HCL 100 MG TABLET (FP) PO SCH (23:14)
[2018-02-25] MEDS: hydrOXYzine PAMOATE 25 MG CAPSULE (FP) PO PRN (03:49)
[2018-02-25] MEDS: ACETAMINOPHEN 325 MG TABLET (FP) PO PRN (03:49)
[2018-02-25] MEDS: INSULIN SLIDING SCALE (NOVOLOG) 1 VIAL SQ SCH ×4 (07:18→21:28)
[2018-02-25] MEDS: metFORMIN HCL 500 MG TABLET (FP) PO SCH ×2 (07:18→16:34)
[2018-02-25] MEDS ORDERED: INSULIN SLIDING SCALE (NOVOLOG) 1 VIAL SQ ONE (07:21)
[2018-02-25] MEDS ORDERED: METHADONE HCL 10 MG TABLET (FOR DETOX USE ONLY) PO ONE (10:00)
[2018-02-25] MEDS: NICOTINE 21 MG/24 HOURS TOPICAL PATCH TD SCH (11:04)
[2018-02-25] MEDS: PRENATAL VITAMINS W/ FOLIC ACID TABLET (FP) PO SCH (11:04)
--- NOTE | 2018-02-25 11:58 | PN ---
[facility] Progress Note (SOAP) Subjective: Stomach ache, nausea, interrupted sleep Objective: 02/25/18 11:48 Last Vital Signs Temp Pulse Resp BP Pulse Ox 98.9 F 93 H 20 115/72 02/25/18 09:07 02/25/18 09:07 02/25/18 09:07 02/25/18 09:07 Laboratory Tests 02/21/18 02/21/18 02/21/18 21:49 22:33 23:23 WBC RBC Hgb Hct MCV MCH MCHC RDW Plt Count MPV Absolute Neuts (auto) Neutrophils % Neutrophils % (Manual) Band Neutrophils % Lymphocytes % Lymphocytes % (Manual) Monocytes % Monocytes % (Manual) Eosinophils % Eosinophils % (Manual) Basophils % Basophils % (Manual) Myelocytes % (Man) Promyelocytes % (Man) Blast Cells % (Manual) Nucleated RBC % Metamyelocytes Hypochromia Platelet Estimate Polychromasia Poikilocytosis Anisocytosis Microcytosis Macrocytosis Sodium Potassium Chloride Carbon Dioxide Anion Gap BUN Creatinine Creat Clearance w eGFR POC Glucometer 447 514 Random Glucose Calcium Total Bilirubin AST ALT Alkaline Phosphatase Total Protein Albumin Urine Color Straw Urine Appearance Clear Urine pH 6.0 Ur Specific [place] 1.038 H Urine Protein Negative Urine Glucose (UA) 3+ H Urine Ketones Trace H Urine Blood Negative Urine Nitrite Negative Urine Bilirubin Negative Urine Urobilinogen Negative Ur Leukocyte Esterase Negative RPR Titer 02/22/18 02/22/18 02/22/18 06:52 07:00 07:00 WBC RBC Hgb Hct MCV MCH MCHC RDW Plt Count MPV Absolute Neuts (auto) Neutrophils % Neutrophils % (Manual) Band Neutrophils % Lymphocytes % Lymphocytes % (Manual) Monocytes % Monocytes % (Manual) Eosinophils % Eosinophils % (Manual) Basophils % Basophils % (Manual) Myelocytes % (Man) Promyelocytes % (Man) Blast Cells % (Manual) Nucleated RBC % Metamyelocytes Hypochromia Platelet Estimate Polychromasia Poikilocytosis Anisocytosis Microcytosis Macrocytosis Sodium 133 L Potassium 4.2 Chloride 97 L Carbon Dioxide 26 Anion Gap 10 BUN 20 H Creatinine 1.0 Creat Clearance w eGFR > 60 POC Glucometer > 600 Random Glucose 370 H* Calcium 8.8 Total Bilirubin 0.3 AST 14 L ALT 24 Alkaline Phosphatase 143 H Total Protein 6.3 L Albumin 3.4 Urine Color Urine Appearance Urine pH Ur Specific [place] Urine Protein Urine Glucose (UA) Urine Ketones Urine Blood Urine Nitrite Urine Bilirubin Urine Urobilinogen Ur Leukocyte Esterase RPR Titer Nonreactive 02/22/18 02/22/18 02/22/18 07:00 11:23 16:22 WBC 10.0 RBC 5.32 Hgb 12.9 Hct 41.0 MCV 77.1 L MCH 24.3 L D MCHC 31.5 L RDW 14.8 D Plt Count 364 MPV 6.6 L Absolute Neuts (auto) 4.3 Neutrophils % 42.6 L Neutrophils % (Manual) 45.5 Band Neutrophils % 0.0 Lymphocytes % 48.9 H Lymphocytes % (Manual) 43.6 H Monocytes % 5.6 Monocytes % (Manual) 5 Eosinophils % 2.2 Eosinophils % (Manual) 3.0 Basophils % 0.7 Basophils % (Manual) 1.0 Myelocytes % (Man) 0 Promyelocytes % (Man) 0 Blast Cells % (Manual) 0 Nucleated RBC % 0 Metamyelocytes 0 Hypochromia 0 Platelet Estimate Normal Polychromasia 0 Poikilocytosis 0 Anisocytosis 1+ Microcytosis 1+ Macrocytosis 0 Sodium Potassium Chloride Carbon Dioxide Anion Gap BUN Creatinine Creat Clearance w eGFR POC Glucometer 380 313 Random Glucose Calcium Total Bilirubin AST ALT Alkaline Phosphatase Total Protein Albumin Urine Color Urine Appearance Urine pH Ur Specific [place] Urine Protein Urine Glucose (UA) Urine Ketones Urine Blood Urine Nitrite Urine Bilirubin Urine Urobilinogen Ur Leukocyte Esterase RPR Titer 02/22/18 02/22/18 02/23/18 21:34 23:54 07:40 WBC RBC Hgb Hct MCV MCH MCHC RDW Plt Count MPV Absolute Neuts (auto) Neutrophils % Neutrophils % (Manual) Band Neutrophils % Lymphocytes % Lymphocytes % (Manual) Monocytes % Monocytes % (Manual) Eosinophils % Eosinophils % (Manual) Basophils % Basophils % (Manual) Myelocytes % (Man) Promyelocytes % (Man) Blast Cells % (Manual) Nucleated RBC % Metamyelocytes Hypochromia Platelet Estimate Polychromasia Poikilocytosis Anisocytosis Microcytosis Macrocytosis Sodium Potassium Chloride Carbon Dioxide Anion Gap BUN Creatinine Creat Clearance w eGFR POC Glucometer 595 589 > 600 Random Glucose Calcium Total Bilirubin AST ALT Alkaline Phosphatase Total Protein Albumin Urine Color Urine Appearance Urine pH Ur Specific [place] Urine Protein Urine Glucose (UA) Urine Ketones Urine Blood Urine Nitrite Urine Bilirubin Urine Urobilinogen Ur Leukocyte Esterase RPR Titer 02/23/18 02/23/18 02/23/18 11:08 11:20 16:28 WBC RBC Hgb Hct MCV MCH MCHC RDW Plt Count MPV Absolute Neuts (auto) Neutrophils % Neutrophils % (Manual) Band Neutrophils % Lymphocytes % Lymphocytes % (Manual) Monocytes % Monocytes % (Manual) Eosinophils % Eosinophils % (Manual) Basophils % Basophils % (Manual) Myelocytes % (Man) Promyelocytes % (Man) Blast Cells % (Manual) Nucleated RBC % Metamyelocytes Hypochromia Platelet Estimate Polychromasia Poikilocytosis Anisocytosis Microcytosis Macrocytosis Sodium 132 L Potassium 4.3 Chloride 94 L Carbon Dioxide 28 Anion Gap 10 BUN 21 H Creatinine 1.1 Creat Clearance w eGFR > 60 POC Glucometer > 600 521 Random Glucose 487 H* Calcium 8.6 Total Bilirubin AST ALT Alkaline Phosphatase Total Protein Albumin Urine Color Urine Appearance Urine pH Ur Specific [place] Urine Protein Urine Glucose (UA) Urine Ketones Urine Blood Urine Nitrite Urine Bilirubin Urine Urobilinogen Ur Leukocyte Esterase RPR Titer 02/23/18 02/24/18 02/24/18 20:49 11:08 16:25 WBC RBC Hgb Hct MCV MCH MCHC RDW Plt Count MPV Absolute Neuts (auto) Neutrophils % Neutrophils % (Manual) Band Neutrophils % Lymphocytes % Lymphocytes % (Manual) Monocytes % Monocytes % (Manual) Eosinophils % Eosinophils % (Manual) Basophils % Basophils % (Manual) Myelocytes % (Man) Promyelocytes % (Man) Blast Cells % (Manual) Nucleated RBC % Metamyelocytes Hypochromia Platelet Estimate Polychromasia Poikilocytosis Anisocytosis Microcytosis Macrocytosis Sodium Potassium Chloride Carbon Dioxide Anion Gap BUN Creatinine Creat Clearance w eGFR POC Glucometer 501 585 525 Random Glucose Calcium Total Bilirubin AST ALT Alkaline Phosphatase Total Protein Albumin Urine Color Urine Appearance Urine pH Ur Specific [place] Urine Protein Urine Glucose (UA) Urine Ketones Urine Blood Urine Nitrite Urine Bilirubin Urine Urobilinogen Ur Leukocyte Esterase RPR Titer 02/24/18 02/25/18 19:55 07:14 WBC RBC Hgb Hct MCV MCH MCHC RDW Plt Count MPV Absolute Neuts (auto) Neutrophils % Neutrophils % (Manual) Band Neutrophils % Lymphocytes % Lymphocytes % (Manual) Monocytes % Monocytes % (Manual) Eosinophils % Eosinophils % (Manual) Basophils % Basophils % (Manual) Myelocytes % (Man) Promyelocytes % (Man) Blast Cells % (Manual) Nucleated RBC % Metamyelocytes Hypochromia Platelet Estimate Polychromasia Poikilocytosis Anisocytosis Microcytosis Macrocytosis Sodium Potassium Chloride Carbon Dioxide Anion Gap BUN Creatinine Creat Clearance w eGFR POC Glucometer 359 176 Random Glucose Calcium Total Bilirubin AST ALT Alkaline Phosphatase Total Protein Albumin Urine Color Urine Appearance Urine pH Ur Specific [place] Urine Protein Urine Glucose (UA) Urine Ketones Urine Blood Urine Nitrite Urine Bilirubin Urine Urobilinogen Ur Leukocyte Esterase RPR Titer Labs reviewed: hyperglycemia due to DM, finger stick this morning 176 Assessment: 02/25/18 11:51 Withdrawal symptoms Plan: Continue detox Encouraged PO water intake Continue diabetic regimen and follow up with PCP within 1 week post discharge Patient is scheduled for discharge tomorrow
[2018-02-25] MEDS: QUEtiapine FUMARATE 50 MG TABLET PO SCH (21:21)
[2018-02-25] MEDS: THIAMINE HCL 100 MG TABLET (FP) PO SCH (21:21)
[2018-02-25] MEDS: INSULIN (LEVEMIR) 100 UNITS/ML UNITS SQ SCH (21:21)
[2018-02-25] MEDS: MELATONIN 5 MG TABLETS PO PRN (21:22)
[2018-02-26] MEDS: metFORMIN HCL 500 MG TABLET (FP) PO SCH ×2 (06:00→17:36)
[2018-02-26] MEDS: INSULIN SLIDING SCALE (NOVOLOG) 1 VIAL SQ SCH ×4 (06:00→22:38)
[2018-02-26] MEDS ORDERED: METHADONE HCL 5 MG TABLET (FOR DETOX USE ONLY) PO ONE (06:00)
[2018-02-26] MEDS: PRENATAL VITAMINS W/ FOLIC ACID TABLET (FP) PO SCH (10:13)
[2018-02-26] MEDS: NICOTINE 21 MG/24 HOURS TOPICAL PATCH TD SCH (10:13)
--- NOTE | 2018-02-26 12:35 | PN ---
[facility] Progress Note Note: PATIENT COMPLETED DETOX WITHOUT ADVERSE EVENT. ACCEPTED TRANSFER TO [address] [place] [address]. TRANSFERRED IN STABLE MEDICAL CONDITION.
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
[2018-02-26] MEDS: MAG HYDROX/AL HYDROX/SIMETH 30 ML UNIT-DOSE CUP PO PRN (19:23)
[2018-02-26] MEDS: IBUPROFEN 400 MG TABLET (FP) PO PRN (20:20)
[2018-02-26] MEDS: hydrOXYzine PAMOATE 25 MG CAPSULE (FP) PO PRN (20:21)
[2018-02-26] MEDS: MIRTAZAPINE 15 MG TABLET (FP) PO SCH (22:36)
[2018-02-26] MEDS: THIAMINE HCL 100 MG TABLET (FP) PO SCH (22:36)
[2018-02-26] MEDS: INSULIN (LEVEMIR) 100 UNITS/ML UNITS SQ SCH (22:37)
[2018-02-26] MEDS: TRIMETHOBENZAMIDE HCL 200MG/2ML INJ IM PRN (22:41)
[2018-02-26] MEDS ORDERED: INSULIN (NOVOLOG) ASPART 100 UNITS/ML 10ML VIAL ONE (22:49)
[2018-02-27] MEDS: metFORMIN HCL 500 MG TABLET (FP) PO SCH ×2 (06:11→16:31)
[2018-02-27] MEDS: INSULIN SLIDING SCALE (NOVOLOG) 1 VIAL SQ SCH ×5 (06:12→22:56)
[2018-02-27] MEDS: NICOTINE 21 MG/24 HOURS TOPICAL PATCH TD SCH (10:55)
[2018-02-27] MEDS: PRENATAL VITAMINS W/ FOLIC ACID TABLET (FP) PO SCH (10:55)
[2018-02-27] MEDS: SERTRALINE HCL 50 MG TABLET (FP) PO SCH (11:55)
[2018-02-27] MEDS: ONDANSETRON *ODT* 4 MG TABLET SL PRN (13:00)
[2018-02-27] MEDS: MAG HYDROX/AL HYDROX/SIMETH 30 ML UNIT-DOSE CUP PO PRN (14:51)
[2018-02-27] MEDS ORDERED: INSULIN (NOVOLOG) ASPART 100 UNITS/ML 10ML VIAL ONE (17:10)
[2018-02-27] MEDS: INSULIN (LEVEMIR) 100 UNITS/ML UNITS SQ SCH (22:56)
[2018-02-27] MEDS: MIRTAZAPINE 15 MG TABLET (FP) PO SCH (22:56)
[2018-02-27] MEDS: THIAMINE HCL 100 MG TABLET (FP) PO SCH (22:56)
[2018-02-28] MEDS: ACETAMINOPHEN 325 MG TABLET (FP) PO PRN ×3 (01:59→22:25)
[2018-02-28] MEDS: NICOTINE POLACRILEX 4 MG GUM BC PRN (02:00)
[2018-02-28] MEDS: metFORMIN HCL 500 MG TABLET (FP) PO SCH ×2 (07:28→16:54)
[2018-02-28] MEDS: INSULIN SLIDING SCALE (NOVOLOG) 1 VIAL SQ SCH ×4 (07:28→22:26)
[2018-02-28] MEDS: NICOTINE 21 MG/24 HOURS TOPICAL PATCH TD SCH (13:31)
[2018-02-28] MEDS: PRENATAL VITAMINS W/ FOLIC ACID TABLET (FP) PO SCH (13:32)
[2018-02-28] MEDS: SERTRALINE HCL 50 MG TABLET (FP) PO SCH (13:39)
[2018-02-28] MEDS ORDERED: INSULIN (NOVOLOG) ASPART 100 UNITS/ML 10ML VIAL ONE (13:50)
[2018-02-28] MEDS: MIRTAZAPINE 15 MG TABLET (FP) PO SCH (22:22)
[2018-02-28] MEDS: INSULIN (LEVEMIR) 100 UNITS/ML UNITS SQ SCH (22:23)
[2018-02-28] MEDS: THIAMINE HCL 100 MG TABLET (FP) PO SCH (22:24)
[2018-03-01] MEDS: hydrOXYzine PAMOATE 25 MG CAPSULE (FP) PO PRN ×2 (00:55→12:05)
[2018-03-01] MEDS: INSULIN SLIDING SCALE (NOVOLOG) 1 VIAL SQ SCH ×4 (07:40→22:03)
[2018-03-01] MEDS: metFORMIN HCL 500 MG TABLET (FP) PO SCH ×2 (08:00→16:41)
[2018-03-01] MEDS: ACETAMINOPHEN 325 MG TABLET (FP) PO PRN ×2 (08:00→22:06)
[2018-03-01] MEDS: SERTRALINE HCL 50 MG TABLET (FP) PO SCH (10:22)
[2018-03-01] MEDS: NICOTINE 21 MG/24 HOURS TOPICAL PATCH TD SCH (10:22)
[2018-03-01] MEDS: PRENATAL VITAMINS W/ FOLIC ACID TABLET (FP) PO SCH (10:22)
[2018-03-01] MEDS: NICOTINE POLACRILEX 4 MG GUM BC PRN (10:23)
[2018-03-01] MEDS: IBUPROFEN 400 MG TABLET (FP) PO PRN (12:05)
[2018-03-01] MEDS ORDERED: INSULIN (NOVOLOG) ASPART 100 UNITS/ML 10ML VIAL ONE (12:21)
[2018-03-01] MEDS: MIRTAZAPINE 15 MG TABLET (FP) PO SCH (22:01)
[2018-03-01] MEDS: THIAMINE HCL 100 MG TABLET (FP) PO SCH (22:02)
[2018-03-01 22:05] LABS: URINE APPEARANCE CLEAR; URINE BILIRUBIN NEGATIVE (<2.0 mg/dL); URINE COLOR STRAW; URINE GLUCOSE (UA) 3+ (NEGATIVE); URINE KETONE NEGATIVE (NEGATIVE); URINE LEUK ESTERASE NEGATIVE (NEGATIVE); URINE NITRITE NEGATIVE (NEGATIVE); URINE PROTEIN NEGATIVE (NEGATIVE); URINE UROBILINOGEN NEGATIVE mg/dL (0.2-1.0)
[2018-03-01] MEDS: INSULIN (LEVEMIR) 100 UNITS/ML UNITS SQ SCH (22:19)
[2018-03-02] MEDS: IBUPROFEN 400 MG TABLET (FP) PO PRN ×3 (01:01→21:35)
[2018-03-02] MEDS: hydrOXYzine PAMOATE 25 MG CAPSULE (FP) PO PRN (01:01)
[2018-03-02] MEDS: metFORMIN HCL 500 MG TABLET (FP) PO SCH ×2 (06:39→16:52)
[2018-03-02] MEDS ORDERED: INSULIN (NOVOLOG) ASPART 100 UNITS/ML 10ML VIAL ONE ×3 (06:44→16:51)
[2018-03-02] MEDS: INSULIN SLIDING SCALE (NOVOLOG) 1 VIAL SQ SCH ×4 (07:30→21:47)
[2018-03-02] MEDS: NICOTINE 21 MG/24 HOURS TOPICAL PATCH TD SCH (09:22)
[2018-03-02] MEDS: SERTRALINE HCL 50 MG TABLET (FP) PO SCH (09:22)
[2018-03-02] MEDS: PRENATAL VITAMINS W/ FOLIC ACID TABLET (FP) PO SCH (09:22)
[2018-03-02] MEDS: NICOTINE POLACRILEX 4 MG GUM BC PRN ×2 (09:25→21:35)
[2018-03-02] MEDS: ACETAMINOPHEN 325 MG TABLET (FP) PO PRN (11:25)
--- NOTE | 2018-03-02 15:10 | HP ---
COWS - Scale Resting Pulse: 1= DE 81-100 Sweatin= Chills/Flushing Restless Observation: 0= Sits Still Pupil Size: 0= Normal to Room Light Bone or Joint Aches: 4=Acute Joint/Muscle Pain Runny Nose/ Eye Tearin= Runny Nose/Eyes GI Upset > 30mins: 2= Nausea/Diarrhea Tremor Observation: 1= Tremor [place], Not Seen Yawning Observation: 0= None Anxiety or Irritability: 1=Feels Anxious/Irritable Goose Flesh Skin: 0=Smooth Skin COWS Score: 12 CIWA Score - Admission Criteria [facility]ASAS Guidelines: Admission for Medically Managed Detox: Requires at least one of the followin. CIWA greater than 12 2. Seizures within the past 24 hours 3. Delirium tremens within the past 24 hours 4. Hallucinations within the past 24 hours 5. Acute intervention needed for co occurring medical disorder 6. Acute intervention needed for co occurring psychiatric disorder 7. Severe withdrawal that cannot be handled at a lower level of care (continued vomiting, continued diarrhea, abnormal vital signs) requiring intravenous medication and/or fluids 8. Admission ROS [facility] - [facility] Chief Complaint: REQUESTING SUBOXONE TREATMENT/OPIATE WITHDRAWALS SX Allergies/Adverse Reactions: Allergies Allergy/AdvReac Type Severity Reaction Status Date / Time No Known Allergies Allergy Verified 02/21/18 21:40 History of Present Illness: 47 Y/O MALE WITH A HX OF OPIOID DEPENDENCE WHO COMPLETED DETOX ON 02/26/18 AND REFERRED TO REHAB NOW REQUESTING SUBOXONE TREATMENT. PT REPORTS HE WAS ON SUBOXONE 8MG/2MG SL SPLIT DOSE DAILY 4 MG BID. PT REPORTS HE HAS BEEN USING HEROIN AND NEEDED A PROGRAM TO STOP USING BECAUSE "LIVING ON THE STREET WILL NOT BREAK THE PATTERN". PT REPORTS HE HAS BEEN IN AND [facility], LAST WAS 6 MONTHS AGO. PT HAS NO ACCURATE HX BUT STATES HE HAS GONE FROM STATE TO [facility], [place], [place] AND [place] TO NAME A FEW. NO PNP REGISTRY ON SUBOXONE. HOWEVER, [facility] ON /[place], [place], CONFIRMED PT'S SUBOXONE 8 MG/ 2MG SL DAILY RX POSTED ON 01/16/18 BUT PT NEVER PICKED IT UP. SPOKE WITH AUG[place]A AT [phone]. [address]IB[address] LORENA IBARRA. PT ALSO REPORTS HE HAS BEEN GOING TO [facility] ON [address] FOR SERVICES WITH DR. LORENA IBARRA.. - Ebola screening Have you traveled outside of the country in the last 21 days: No (N) Have you had contact with anyone from an Ebola affected area: No Have you been sick,other than usual withdrawal symptoms: No Do you have a fever: No - Review of Systems Constitutional: Chills, Night Sweats GI: reports: Diarrhea, Nausea, Vomiting Musculoskeletal: reports: Joint Pain, Muscle Pain Patient History - Patient Medical History Hx Anemia: No Hx Asthma: No Hx Chronic Obstructive Pulmonary Disease (COPD): No Hx Cardiac Disorders: No Hx Hypertension: No Hx Seizures: No Hx Diabetes: Yes (Patient reported IDDM) Hx Gastrointestinal Disorders: No Hx Genitourinary Disorders: No Hx Sexually Transmitted Disorders: No Hx Renal Disease (ESRD): No Hx Human Immunodeficiency Virus (HIV): No Hx Hepatitis C: No Hx Depression: Yes Hx Suicide Attempt: No Hx Schizophrenia: No - Patient Surgical History Past Surgical History: Yes Hx Neurologic Surgery: Yes (FOR HYDROCEPHALUS) Hx Cataract Extraction: No Hx Cardiac Surgery: No Hx Lung Surgery: No Hx Breast Surgery: No Hx Breast Biopsy: No Hx Abdominal Surgery: No Hx Appendectomy: No Hx Cholecystectomy: No Hx Genitourinary Surgery: No Hx Section: No Hx Orthopedic Surgery: Yes (SPINAL FUSION AT C5-6 IN 02/2010) Anesthesia Reaction: No - PPD History Previous Implant?: Yes Documented Results: Negative w/proof Implanted On Prior [facility] Admission?: Yes Date: 02/23/18 Results: 0 mm. - Reproductive History Patient is a Female of Child Bearing Age (11 -55 yrs old): No - Smoking Cessation Smoking history: Current every day smoker Have you smoked in the past 12 months: Yes Aproximately how many cigarettes per day: 15 Cigars Per Day: 0 Hx Chewing Tobacco Use: No Initiated information on smoking cessation: Yes 'Breaking Loose' booklet given: 03/02/18 - Substance & Tx. History Hx Substance Use: Yes Substance Use Type: Cocaine, Heroin - Substances Abused Heroin Route: Injection Frequency: Daily Amount used: 10 BAGS/DAILY Age of first use: 31 Date of Last Use: 02/20/18 Cocaine Route: Smoking Frequency: 1-3 times last 30 days Amount used: $20/ONCE IN 3 MONTHS Age of first use: 21 Date of Last Use: 02/20/18 PCP Route: Smoking Frequency: Daily Amount used: 1-2 J/D Age of first use: Date of Last Use: 02/21/18 Admission Physical Exam [facility] - Vital Signs Vital Signs: Vital Signs - 24 hr 03/02/18 03/02/18 03/02/18 00:30 03:30 06:41 Temperature 99.2 F Pulse Rate 85 Respiratory 18 18 18 Rate Blood Pressure 129/86 - Physical General Appearance: Yes: Anxious HEENTM: Yes: EOMI, PUMA (3 mm) - Addiitonal Findings: PLAN: COWS SCORE = 12 START SUBOXONE 2 MG/0.5 MG SL NOW RE-EVALUATE AND INCREASE NEEDED. PT WILL BE REFERRED TO [facility] FOR AFTERCARE PER COUNSELOR [facility] Breath Alcohol Content Breath Alcohol Content: 0 Urine Drug Screen - Results Drug Screen Negative: No Urine Drug Screen Results: OPI-Opiates, BUP-Suboxone
[2018-03-02] MEDS ORDERED: BUPRENORPHINE/NALOXONE 2 MG/0.5 MG FILM PACKET SL ONE (15:39)
[2018-03-02] MEDS: INSULIN (LEVEMIR) 100 UNITS/ML UNITS SQ SCH (21:31)
[2018-03-02] MEDS: MIRTAZAPINE 15 MG TABLET (FP) PO SCH (21:33)
[2018-03-02] MEDS: THIAMINE HCL 100 MG TABLET (FP) PO SCH (21:33)
[2018-03-02] MEDS: BUPRENORPHINE/NALOXONE 2 MG/0.5 MG FILM PACKET SL SCH (21:33)
[2018-03-02] MEDS ORDERED: BUPRENORPHINE/NALOXONE 2 MG/0.5 MG FILM PACKET SL SCH (22:00)
[2018-03-03] MEDS: INSULIN SLIDING SCALE (NOVOLOG) 1 VIAL SQ SCH ×4 (06:32→21:32)
[2018-03-03] MEDS: metFORMIN HCL 500 MG TABLET (FP) PO SCH ×2 (06:39→16:40)
[2018-03-03] MEDS: IBUPROFEN 400 MG TABLET (FP) PO PRN (08:22)
[2018-03-03] MEDS: NICOTINE POLACRILEX 4 MG GUM BC PRN ×2 (08:23→13:28)
[2018-03-03] MEDS: PRENATAL VITAMINS W/ FOLIC ACID TABLET (FP) PO SCH (09:56)
[2018-03-03] MEDS: BUPRENORPHINE/NALOXONE 2 MG/0.5 MG FILM PACKET SL SCH ×2 (09:57→21:31)
[2018-03-03] MEDS: NICOTINE 21 MG/24 HOURS TOPICAL PATCH TD SCH (09:58)
[2018-03-03] MEDS ORDERED: BUPRENORPHINE/NALOXONE 2 MG/0.5 MG FILM PACKET SL SCH (10:00)
[2018-03-03] MEDS: SERTRALINE HCL 50 MG TABLET (FP) PO SCH (10:43)
[2018-03-03] MEDS ORDERED: INSULIN (NOVOLOG) ASPART 100 UNITS/ML 10ML VIAL ONE ×2 (11:46→16:40)
[2018-03-03] MEDS: ACETAMINOPHEN 325 MG TABLET (FP) PO PRN (13:27)
[2018-03-03] MEDS: MIRTAZAPINE 15 MG TABLET (FP) PO SCH (21:27)
[2018-03-03] MEDS: THIAMINE HCL 100 MG TABLET (FP) PO SCH (21:27)
[2018-03-03] MEDS: INSULIN (LEVEMIR) 100 UNITS/ML UNITS SQ SCH (21:28)
[2018-03-04] MEDS: INSULIN SLIDING SCALE (NOVOLOG) 1 VIAL SQ SCH ×4 (06:54→21:30)
[2018-03-04] MEDS: metFORMIN HCL 500 MG TABLET (FP) PO SCH ×2 (07:30→16:53)
[2018-03-04] MEDS: SERTRALINE HCL 50 MG TABLET (FP) PO SCH (10:32)
[2018-03-04] MEDS: BUPRENORPHINE/NALOXONE 2 MG/0.5 MG FILM PACKET SL SCH ×2 (10:32→21:28)
[2018-03-04] MEDS: PRENATAL VITAMINS W/ FOLIC ACID TABLET (FP) PO SCH (10:32)
[2018-03-04] MEDS: NICOTINE 21 MG/24 HOURS TOPICAL PATCH TD SCH (10:33)
[2018-03-04] MEDS: NICOTINE POLACRILEX 4 MG GUM BC PRN (10:33)
[2018-03-04] MEDS: ACETAMINOPHEN 325 MG TABLET (FP) PO PRN (10:34)
[2018-03-04] MEDS: IBUPROFEN 400 MG TABLET (FP) PO PRN (17:51)
[2018-03-04] MEDS: THIAMINE HCL 100 MG TABLET (FP) PO SCH (21:27)
[2018-03-04] MEDS: INSULIN (LEVEMIR) 100 UNITS/ML UNITS SQ SCH (21:28)
[2018-03-04] MEDS: MIRTAZAPINE 15 MG TABLET (FP) PO SCH (21:29)
[2018-03-05] MEDS: INSULIN SLIDING SCALE (NOVOLOG) 1 VIAL SQ SCH ×4 (07:08→21:39)
[2018-03-05] MEDS: metFORMIN HCL 500 MG TABLET (FP) PO SCH ×2 (07:08→16:52)
[2018-03-05] MEDS: PRENATAL VITAMINS W/ FOLIC ACID TABLET (FP) PO SCH (10:19)
[2018-03-05] MEDS: NICOTINE 21 MG/24 HOURS TOPICAL PATCH TD SCH (10:20)
[2018-03-05] MEDS: BUPRENORPHINE/NALOXONE 2 MG/0.5 MG FILM PACKET SL SCH ×2 (10:20→21:40)
[2018-03-05] MEDS: SERTRALINE HCL 50 MG TABLET (FP) PO SCH (10:20)
[2018-03-05] MEDS ORDERED: INSULIN (NOVOLOG) ASPART 100 UNITS/ML 10ML VIAL ONE ×2 (12:03→16:51)
[2018-03-05] MEDS: INSULIN (LEVEMIR) 100 UNITS/ML UNITS SQ SCH (21:39)
[2018-03-05] MEDS: MIRTAZAPINE 15 MG TABLET (FP) PO SCH (21:39)
[2018-03-05] MEDS: THIAMINE HCL 100 MG TABLET (FP) PO SCH (21:40)
[2018-03-06] MEDS: metFORMIN HCL 500 MG TABLET (FP) PO SCH ×3 (07:59→17:07)
[2018-03-06] MEDS: INSULIN SLIDING SCALE (NOVOLOG) 1 VIAL SQ SCH ×5 (07:59→21:26)
[2018-03-06] MEDS: BUPRENORPHINE/NALOXONE 2 MG/0.5 MG FILM PACKET SL SCH ×2 (09:40→21:24)
[2018-03-06] MEDS: SERTRALINE HCL 50 MG TABLET (FP) PO SCH (09:41)
[2018-03-06] MEDS: PRENATAL VITAMINS W/ FOLIC ACID TABLET (FP) PO SCH (09:41)
[2018-03-06] MEDS: NICOTINE 21 MG/24 HOURS TOPICAL PATCH TD SCH (09:41)
[2018-03-06] MEDS: IBUPROFEN 400 MG TABLET (FP) PO PRN (09:42)
[2018-03-06] MEDS ORDERED: INSULIN (NOVOLOG) ASPART 100 UNITS/ML 10ML VIAL ONE ×2 (12:13→17:55)
[2018-03-06] MEDS: THIAMINE HCL 100 MG TABLET (FP) PO SCH (21:24)
[2018-03-06] MEDS: MIRTAZAPINE 15 MG TABLET (FP) PO SCH (21:25)
[2018-03-06] MEDS: INSULIN (LEVEMIR) 100 UNITS/ML UNITS SQ SCH (21:27)
[2018-03-07] MEDS: INSULIN SLIDING SCALE (NOVOLOG) 1 VIAL SQ SCH ×4 (07:24→21:28)
[2018-03-07] MEDS: PRENATAL VITAMINS W/ FOLIC ACID TABLET (FP) PO SCH (10:26)
[2018-03-07] MEDS: NICOTINE 21 MG/24 HOURS TOPICAL PATCH TD SCH (10:26)
[2018-03-07] MEDS: SERTRALINE HCL 50 MG TABLET (FP) PO SCH (10:26)
[2018-03-07] MEDS: metFORMIN HCL 500 MG TABLET (FP) PO SCH ×2 (10:26→16:53)
[2018-03-07] MEDS: BUPRENORPHINE/NALOXONE 2 MG/0.5 MG FILM PACKET SL SCH ×2 (10:26→21:26)
[2018-03-07] MEDS ORDERED: INSULIN (NOVOLOG) ASPART 100 UNITS/ML 10ML VIAL ONE (17:16)
[2018-03-07] MEDS: MIRTAZAPINE 15 MG TABLET (FP) PO SCH (21:25)
[2018-03-07] MEDS: THIAMINE HCL 100 MG TABLET (FP) PO SCH (21:26)
[2018-03-07] MEDS: INSULIN (LEVEMIR) 100 UNITS/ML UNITS SQ SCH (21:27)
[2018-03-08] MEDS: INSULIN SLIDING SCALE (NOVOLOG) 1 VIAL SQ SCH ×4 (07:48→21:22)
[2018-03-08] MEDS: metFORMIN HCL 500 MG TABLET (FP) PO SCH ×2 (07:48→16:57)
[2018-03-08] MEDS: NICOTINE 21 MG/24 HOURS TOPICAL PATCH TD SCH (11:44)
[2018-03-08] MEDS: BUPRENORPHINE/NALOXONE 2 MG/0.5 MG FILM PACKET SL SCH ×2 (11:45→21:21)
[2018-03-08] MEDS: SERTRALINE HCL 50 MG TABLET (FP) PO SCH (11:45)
[2018-03-08] MEDS: PRENATAL VITAMINS W/ FOLIC ACID TABLET (FP) PO SCH (11:45)
[2018-03-08] MEDS ORDERED: INSULIN (NOVOLOG) ASPART 100 UNITS/ML 10ML VIAL ONE (16:59)
[2018-03-08] MEDS: MIRTAZAPINE 15 MG TABLET (FP) PO SCH (21:17)
[2018-03-08] MEDS: THIAMINE HCL 100 MG TABLET (FP) PO SCH (21:17)
[2018-03-08] MEDS: INSULIN (LEVEMIR) 100 UNITS/ML UNITS SQ SCH (21:21)
[2018-03-09] MEDS: IBUPROFEN 400 MG TABLET (FP) PO PRN ×2 (03:21→23:19)
[2018-03-09] MEDS ORDERED: INSULIN (NOVOLOG) ASPART 100 UNITS/ML 10ML VIAL ONE ×3 (06:35→17:20)
[2018-03-09] MEDS: metFORMIN HCL 500 MG TABLET (FP) PO SCH ×2 (07:40→17:30)
[2018-03-09] MEDS: INSULIN SLIDING SCALE (NOVOLOG) 1 VIAL SQ SCH ×4 (07:41→22:58)
[2018-03-09] MEDS: BUPRENORPHINE/NALOXONE 2 MG/0.5 MG FILM PACKET SL SCH (10:28)
[2018-03-09] MEDS: SERTRALINE HCL 50 MG TABLET (FP) PO SCH (10:28)
[2018-03-09] MEDS: PRENATAL VITAMINS W/ FOLIC ACID TABLET (FP) PO SCH (10:28)
[2018-03-09] MEDS: NICOTINE 21 MG/24 HOURS TOPICAL PATCH TD SCH (10:29)
[2018-03-09] MEDS: ACETAMINOPHEN 325 MG TABLET (FP) PO PRN (12:05)
[2018-03-09] MEDS: INSULIN (LEVEMIR) 100 UNITS/ML UNITS SQ SCH (22:53)
[2018-03-09] MEDS: THIAMINE HCL 100 MG TABLET (FP) PO SCH (23:21)
[2018-03-09] MEDS: MIRTAZAPINE 15 MG TABLET (FP) PO SCH (23:21)
[2018-03-10] MEDS: INSULIN SLIDING SCALE (NOVOLOG) 1 VIAL SQ SCH ×4 (06:31→21:16)
[2018-03-10] MEDS: metFORMIN HCL 500 MG TABLET (FP) PO SCH ×2 (06:31→16:55)
[2018-03-10] MEDS: PRENATAL VITAMINS W/ FOLIC ACID TABLET (FP) PO SCH (10:24)
[2018-03-10] MEDS: SERTRALINE HCL 50 MG TABLET (FP) PO SCH (10:24)
[2018-03-10] MEDS: NICOTINE 21 MG/24 HOURS TOPICAL PATCH TD SCH (10:24)
[2018-03-10] MEDS ORDERED: INSULIN (NOVOLOG) ASPART 100 UNITS/ML 10ML VIAL ONE ×2 (12:38→18:04)
[2018-03-10] MEDS: ACETAMINOPHEN 325 MG TABLET (FP) PO PRN (12:47)
[2018-03-10] MEDS: IBUPROFEN 400 MG TABLET (FP) PO PRN (20:36)
[2018-03-10] MEDS: THIAMINE HCL 100 MG TABLET (FP) PO SCH (21:12)
[2018-03-10] MEDS: INSULIN (LEVEMIR) 100 UNITS/ML UNITS SQ SCH (21:13)
[2018-03-10] MEDS: MIRTAZAPINE 15 MG TABLET (FP) PO SCH (21:40)
[2018-03-11] MEDS: INSULIN SLIDING SCALE (NOVOLOG) 1 VIAL SQ SCH ×4 (07:37→21:18)
[2018-03-11] MEDS: metFORMIN HCL 500 MG TABLET (FP) PO SCH ×2 (07:37→16:48)
[2018-03-11] MEDS: ACETAMINOPHEN 325 MG TABLET (FP) PO PRN ×2 (07:39→23:33)
[2018-03-11] MEDS: SERTRALINE HCL 50 MG TABLET (FP) PO SCH (10:00)
[2018-03-11] MEDS: NICOTINE 21 MG/24 HOURS TOPICAL PATCH TD SCH (10:00)
[2018-03-11] MEDS: PRENATAL VITAMINS W/ FOLIC ACID TABLET (FP) PO SCH (10:00)
[2018-03-11] MEDS: IBUPROFEN 400 MG TABLET (FP) PO PRN ×2 (10:01→18:04)
[2018-03-11] MEDS ORDERED: PT OWN MED DRAWER 7, Y5N ONE (10:42)
[2018-03-11] MEDS ORDERED: INSULIN (NOVOLOG) ASPART 100 UNITS/ML 10ML VIAL ONE ×2 (14:05→16:50)
[2018-03-11] MEDS ORDERED: BUPRENORPHINE/NALOXONE 2 MG/0.5 MG FILM PACKET SL ONE (14:23)
[2018-03-11] MEDS: THIAMINE HCL 100 MG TABLET (FP) PO SCH (21:16)
[2018-03-11] MEDS: INSULIN (LEVEMIR) 100 UNITS/ML UNITS SQ SCH (21:17)
[2018-03-11] MEDS: MIRTAZAPINE 15 MG TABLET (FP) PO SCH (21:18)
[2018-03-11] MEDS: BUPRENORPHINE/NALOXONE 2 MG/0.5 MG FILM PACKET SL SCH (21:18)
[2018-03-12] MEDS: metFORMIN HCL 500 MG TABLET (FP) PO SCH ×2 (07:56→16:48)
[2018-03-12] MEDS: INSULIN SLIDING SCALE (NOVOLOG) 1 VIAL SQ SCH ×4 (07:57→21:20)
[2018-03-12] MEDS: IBUPROFEN 400 MG TABLET (FP) PO PRN ×2 (08:49→21:17)
[2018-03-12] MEDS: SERTRALINE HCL 50 MG TABLET (FP) PO SCH (10:09)
[2018-03-12] MEDS: PRENATAL VITAMINS W/ FOLIC ACID TABLET (FP) PO SCH (10:09)
[2018-03-12] MEDS: BUPRENORPHINE/NALOXONE 2 MG/0.5 MG FILM PACKET SL SCH ×2 (10:10→21:17)
[2018-03-12] MEDS: ACETAMINOPHEN 325 MG TABLET (FP) PO PRN ×2 (10:11→14:19)
[2018-03-12] MEDS: NICOTINE 21 MG/24 HOURS TOPICAL PATCH TD SCH (10:12)
[2018-03-12] MEDS ORDERED: INSULIN (NOVOLOG) ASPART 100 UNITS/ML 10ML VIAL ONE ×2 (11:41→22:28)
--- NOTE | 2018-03-12 11:56 | PN ---
S Progress Note Note: Pt requesting twice a day insulin- thinks it will better control his sugar- levmir changed to twice a day Requesting meds for back pain: kevin kongn and bassam elmore ordered. d/w pt the importance of exercise
[2018-03-12] MEDS: CYCLOBENZAPRINE HCL 5 MG TABLET PO PRN ×2 (12:34→21:17)
--- NOTE | 2018-03-12 14:04 | PN ---
Psychiatric Progress Note Vital Signs: Vital Signs Period Temp Pulse Resp BP Sys/Jalloh Pulse Ox Last 24 Hr 97.8 F 94 17-18 104/75 Date of Session: 03/12/18 Chief Complaint:: " I feel depresssed and anxious ". HPI: Called to evaluate this patient for complaint of depressed mood and feelings of anxiety. ROS: Alert and fully oriented. Ambulatory. Somatic compalints : none offered. Current Medications: Active Medications Generic Name Dose Route Start Last Admin Trade Name Freq PRN Reason Stop Dose Admin Acetaminophen 650 mg 02/21/18 21:06 03/12/18 10:11 Tylenol - PO 650 mg Q4H PRN Administration FEVER Al Hydroxide/Mg Hydroxide 30 ml 02/21/18 21:06 02/27/18 14:51 Mylanta Oral Suspension - PO 30 ml Q6H PRN Administration DYSPEPSIA Buprenorphine/Naloxone 1 each 03/11/18 22:00 03/12/18 10:10 Suboxone 2mg/0.5mg Sl Film - SL 03/18/18 21:59 1 each BID LAZARO Administration Cyclobenzaprine HCl 5 mg 03/12/18 11:53 03/12/18 12:34 Cyclobenzaprine Hcl PO 5 mg TID PRN Administration BACK PAIN Eucalyptus/Menthol/Phenol/Sorbitol 1 each 02/21/18 21:06 Cepastat Lozenge - MM Q4H PRN SORE THROAT Guaifenesin 10 ml 02/21/18 21:06 Robitussin Dm - PO Q6H PRN COUGH Hydroxyzine Pamoate 25 mg 02/21/18 21:06 03/02/18 01:01 Vistaril - PO 25 mg Q4H PRN Administration AGITATION Ibuprofen 400 mg 02/21/18 21:06 03/12/18 08:49 Motrin - PO 400 mg Q6H PRN Administration PAIN LEVEL 4-6 Insulin Aspart 1 vial 02/23/18 10:11 03/12/18 11:42 Novolog Vial Sliding Scale - SQ 4 units ACHS LAZARO Administration Protocol Insulin Detemir 15 units 03/12/18 22:00 Levemir Vial SQ BID LAZARO Loperamide HCl 4 mg 02/21/18 21:06 Imodium - PO Q6H PRN DIARRHEA Magnesium Citrate 300 ml 02/21/18 21:06 Citroma - PO Q48H PRN CONSTIPATION Magnesium Hydroxide 30 ml 02/21/18 21:06 02/26/18 22:37 Milk Of Magnesia - PO 30 ml DAILY PRN Administration CONSTIPATION Metformin HCl 1,000 mg 02/23/18 16:30 03/12/18 07:56 Glucophage - PO 1,000 mg BIDAC LAZARO Administration Methyl Salicylate 1 applic 03/12/18 12:00 Vlad-Iglesias - TP BID LAZARO Mirtazapine 7.5 mg 02/26/18 22:00 03/11/18 21:18 Remeron - PO Not Given HS LAZARO Nicotine 21 mg 02/22/18 10:00 03/12/18 10:12 Nicoderm Patch - TD Not Given DAILY LAZARO Nicotine Polacrilex 4 mg 02/21/18 21:06 03/04/18 10:33 Nicorette Gum - BC 4 mg Q2H PRN Administration NICOTINE REPLACEMENT RX Ondansetron HCl 4 mg 02/27/18 11:43 02/27/18 13:00 Zofran Odt - SL 4 mg Q6H PRN Administration NAUSEA AND/OR VOMITING Multivit/Folic Acid/Iron 1 tab 02/22/18 10:00 03/12/18 10:09 Vitamins (Sjr) - PO 1 tab DAILY LAZARO Administration Pseudoephedrine/Triprolidine 1 combo 02/21/18 21:06 Actifed - PO TID PRN NASAL CONGESTION Sertraline HCl 50 mg 02/27/18 10:00 03/12/18 10:09 Zoloft - PO 50 mg DAILY LAZARO Administration Thiamine HCl 100 mg 02/21/18 22:00 03/11/18 21:16 Vitamin B1 - PO 100 mg HS LAZARO Administration Trimethobenzamide HCl 200 mg 02/24/18 20:19 02/26/18 22:41 Tigan Injection - IM 200 mg Q8H PRN Administration NAUSEA AND/OR VOMITING Medication(s) Change(s): Zoloft is raised to 100 mg po daily (from 50 mg). Mirtazapine is discontinued at patient's request. " It is not working ". Patient declines option of optimization of dosage. Wants to get back on melatonin. " I feel more comfortable with natural things ". Side effects/ benefits of zoloft re-discussed with the patient. Consent (verbal) given to MD. Will follow response. Current Side Effect: No Lab tests ordered: No Lab tests reviewed: Yes Provider note:: Met with the patient. Observed as improved in areas of personal hygiene, level of activity and relatedness. Mr Iyer reports feeling sad, anhedonic, depressed but he denies experiencing suicidal or homicidal ideation, intent or plan. Appetite is well preserved. Sleep remains fair. Patient is encouraged to stay in treatment. Reassurance given. Medications discussed. Made aware of the benefits of attendance to daily therapy sessions and other activities scheduled on the unit. Mr Iyer has expressed his agreement with this plan of care. Stable mental status. Total face to face time:: 25 Mental Status Exam - Mental Status Exam Alert and Oriented to: Time, Place, Person Cognitive Function: Good Patient Appearance: Well Groomed Mood: Withdrawn, Anxious Affect: Mood Congruent, Constricted Patient Behavior: Cooperative Speech Pattern: Clear, Appropriate Voice Loudness: Normal Thought Process: Goal Oriented Thought Disorder: Not Present Hallucinations: Denies Suicidal Ideation: Denies Homicidal Ideation: Denies Insight/Judgement: Fair Sleep: Fair Appetite: Good Muscle strength/Tone: Normal Gait/Station: Normal Psychiatric Treatment Plan - Problem List (1) PTSD (post-traumatic stress disorder) Current Visit: Yes Comment: . (2) Cocaine dependence Current Visit: Yes Comment: . (3) PCP dependence Current Visit: Yes Comment: . (4) Cannabis dependence Current Visit: Yes Comment: . (5) Nicotine dependence Current Visit: Yes Qualifiers: Nicotine product type: cigarettes Substance use status: uncomplicated Qualified Code(s): F17.210 - Nicotine dependence, cigarettes, uncomplicated Comment: . (6) Insomnia Current Visit: Yes Comment: . (7) Non-compliant patient Current Visit: Yes Comment: .
[2018-03-12] MEDS: METHYL SALICYLATE/MENTHOL OINT 30 GM TUBE TP SCH ×2 (14:19→21:26)
[2018-03-12] MEDS: THIAMINE HCL 100 MG TABLET (FP) PO SCH (21:17)
[2018-03-12] MEDS: INSULIN (LEVEMIR) 100 UNITS/ML UNITS SQ SCH (21:18)
[2018-03-12] MEDS ORDERED: MELATONIN 5 MG TABLETS PO PRN (22:00)
[2018-03-13] MEDS: metFORMIN HCL 500 MG TABLET (FP) PO SCH ×2 (08:54→16:49)
[2018-03-13] MEDS: INSULIN SLIDING SCALE (NOVOLOG) 1 VIAL SQ SCH ×4 (09:04→21:43)
[2018-03-13] MEDS: PRENATAL VITAMINS W/ FOLIC ACID TABLET (FP) PO SCH (10:11)
[2018-03-13] MEDS: SERTRALINE HCL 50 MG TABLET (FP) PO SCH (10:11)
[2018-03-13] MEDS: BUPRENORPHINE/NALOXONE 2 MG/0.5 MG FILM PACKET SL SCH ×2 (10:11→21:33)
[2018-03-13] MEDS: IBUPROFEN 400 MG TABLET (FP) PO PRN (10:12)
[2018-03-13] MEDS: CYCLOBENZAPRINE HCL 5 MG TABLET PO PRN (10:13)
[2018-03-13] MEDS: METHYL SALICYLATE/MENTHOL OINT 30 GM TUBE TP SCH ×2 (10:15→21:34)
[2018-03-13] MEDS: NICOTINE 21 MG/24 HOURS TOPICAL PATCH TD SCH (10:16)
[2018-03-13] MEDS: INSULIN (LEVEMIR) 100 UNITS/ML UNITS SQ SCH ×2 (11:31→22:34)
[2018-03-13] MEDS ORDERED: INSULIN (NOVOLOG) ASPART 100 UNITS/ML 10ML VIAL ONE (16:38)
[2018-03-13] MEDS: THIAMINE HCL 100 MG TABLET (FP) PO SCH (21:33)
[2018-03-13] MEDS: ACETAMINOPHEN 325 MG TABLET (FP) PO PRN (21:35)
[2018-03-14] MEDS: CYCLOBENZAPRINE HCL 5 MG TABLET PO PRN ×2 (01:55→21:32)
[2018-03-14] MEDS: IBUPROFEN 400 MG TABLET (FP) PO PRN ×2 (01:55→17:04)
[2018-03-14] MEDS: metFORMIN HCL 500 MG TABLET (FP) PO SCH ×2 (08:12→17:01)
[2018-03-14] MEDS: INSULIN SLIDING SCALE (NOVOLOG) 1 VIAL SQ SCH ×4 (08:13→21:26)
[2018-03-14] MEDS: INSULIN (LEVEMIR) 100 UNITS/ML UNITS SQ SCH ×2 (09:55→21:26)
[2018-03-14] MEDS: BUPRENORPHINE/NALOXONE 2 MG/0.5 MG FILM PACKET SL SCH ×2 (09:56→21:29)
[2018-03-14] MEDS: SERTRALINE HCL 50 MG TABLET (FP) PO SCH (09:56)
[2018-03-14] MEDS: PRENATAL VITAMINS W/ FOLIC ACID TABLET (FP) PO SCH (09:57)
[2018-03-14] MEDS: NICOTINE 21 MG/24 HOURS TOPICAL PATCH TD SCH (09:57)
[2018-03-14] MEDS: ACETAMINOPHEN 325 MG TABLET (FP) PO PRN ×2 (09:58→21:32)
[2018-03-14] MEDS: METHYL SALICYLATE/MENTHOL OINT 30 GM TUBE TP SCH ×2 (09:59→21:31)
[2018-03-14] MEDS ORDERED: INSULIN (NOVOLOG) ASPART 100 UNITS/ML 10ML VIAL ONE ×2 (11:42→11:47)
[2018-03-14] MEDS: THIAMINE HCL 100 MG TABLET (FP) PO SCH (21:27)
[2018-03-15] MEDS: metFORMIN HCL 500 MG TABLET (FP) PO SCH ×2 (07:21→16:40)
[2018-03-15] MEDS: INSULIN SLIDING SCALE (NOVOLOG) 1 VIAL SQ SCH ×4 (07:21→21:32)
[2018-03-15] MEDS: METHYL SALICYLATE/MENTHOL OINT 30 GM TUBE TP SCH ×2 (10:51→21:31)
[2018-03-15] MEDS: SERTRALINE HCL 50 MG TABLET (FP) PO SCH (10:51)
[2018-03-15] MEDS: BUPRENORPHINE/NALOXONE 2 MG/0.5 MG FILM PACKET SL SCH ×2 (10:51→21:32)
[2018-03-15] MEDS: PRENATAL VITAMINS W/ FOLIC ACID TABLET (FP) PO SCH (10:51)
[2018-03-15] MEDS: NICOTINE 21 MG/24 HOURS TOPICAL PATCH TD SCH (10:52)
[2018-03-15] MEDS: INSULIN (LEVEMIR) 100 UNITS/ML UNITS SQ SCH ×2 (10:56→21:27)
[2018-03-15] MEDS ORDERED: INSULIN (NOVOLOG) ASPART 100 UNITS/ML 10ML VIAL ONE ×2 (12:10→16:40)
[2018-03-15] MEDS: THIAMINE HCL 100 MG TABLET (FP) PO SCH (21:27)
[2018-03-15] MEDS: CYCLOBENZAPRINE HCL 5 MG TABLET PO PRN (21:30)
[2018-03-15] MEDS: IBUPROFEN 400 MG TABLET (FP) PO PRN (21:31)
[2018-03-16] MEDS: metFORMIN HCL 500 MG TABLET (FP) PO SCH ×2 (07:18→16:46)
[2018-03-16] MEDS: ACETAMINOPHEN 325 MG TABLET (FP) PO PRN ×2 (07:18→16:48)
[2018-03-16] MEDS: INSULIN SLIDING SCALE (NOVOLOG) 1 VIAL SQ SCH ×4 (07:23→22:27)
[2018-03-16] MEDS: PRENATAL VITAMINS W/ FOLIC ACID TABLET (FP) PO SCH (10:25)
[2018-03-16] MEDS: NICOTINE 21 MG/24 HOURS TOPICAL PATCH TD SCH (10:25)
[2018-03-16] MEDS: BUPRENORPHINE/NALOXONE 2 MG/0.5 MG FILM PACKET SL SCH ×2 (10:25→22:27)
[2018-03-16] MEDS: SERTRALINE HCL 50 MG TABLET (FP) PO SCH (10:25)
[2018-03-16] MEDS: INSULIN (LEVEMIR) 100 UNITS/ML UNITS SQ SCH ×2 (10:26→22:26)
[2018-03-16] MEDS: METHYL SALICYLATE/MENTHOL OINT 30 GM TUBE TP SCH ×2 (10:27→22:26)
[2018-03-16] MEDS ORDERED: INSULIN (NOVOLOG) ASPART 100 UNITS/ML 10ML VIAL ONE ×2 (12:09→15:57)
[2018-03-16] MEDS: IBUPROFEN 400 MG TABLET (FP) PO PRN (17:46)
[2018-03-16] MEDS: CYCLOBENZAPRINE HCL 5 MG TABLET PO PRN (17:46)
[2018-03-16] MEDS: THIAMINE HCL 100 MG TABLET (FP) PO SCH (22:27)
[2018-03-17] MEDS: metFORMIN HCL 500 MG TABLET (FP) PO SCH ×2 (07:12→17:08)
[2018-03-17] MEDS: INSULIN SLIDING SCALE (NOVOLOG) 1 VIAL SQ SCH ×4 (07:13→21:22)
[2018-03-17] MEDS: BUPRENORPHINE/NALOXONE 2 MG/0.5 MG FILM PACKET SL SCH ×2 (10:18→21:22)
[2018-03-17] MEDS: METHYL SALICYLATE/MENTHOL OINT 30 GM TUBE TP SCH ×2 (10:19→21:22)
[2018-03-17] MEDS: NICOTINE 21 MG/24 HOURS TOPICAL PATCH TD SCH (10:19)
[2018-03-17] MEDS: SERTRALINE HCL 50 MG TABLET (FP) PO SCH (10:19)
[2018-03-17] MEDS: PRENATAL VITAMINS W/ FOLIC ACID TABLET (FP) PO SCH (10:19)
[2018-03-17] MEDS: INSULIN (LEVEMIR) 100 UNITS/ML UNITS SQ SCH ×2 (10:20→21:24)
[2018-03-17] MEDS: ACETAMINOPHEN 325 MG TABLET (FP) PO PRN ×2 (10:22→21:22)
[2018-03-17] MEDS ORDERED: INSULIN (NOVOLOG) ASPART 100 UNITS/ML 10ML VIAL ONE (12:09)
[2018-03-17] MEDS: IBUPROFEN 400 MG TABLET (FP) PO PRN (12:10)
[2018-03-17] MEDS: CYCLOBENZAPRINE HCL 5 MG TABLET PO PRN (21:22)
[2018-03-17] MEDS: THIAMINE HCL 100 MG TABLET (FP) PO SCH (21:22)
[2018-03-18] MEDS: INSULIN SLIDING SCALE (NOVOLOG) 1 VIAL SQ SCH ×4 (07:13→23:49)
[2018-03-18] MEDS: metFORMIN HCL 500 MG TABLET (FP) PO SCH ×2 (07:44→17:07)
[2018-03-18] MEDS: BUPRENORPHINE/NALOXONE 2 MG/0.5 MG FILM PACKET SL SCH (10:08)
[2018-03-18] MEDS: INSULIN (LEVEMIR) 100 UNITS/ML UNITS SQ SCH ×2 (10:10→23:49)
[2018-03-18] MEDS: SERTRALINE HCL 50 MG TABLET (FP) PO SCH (10:12)
[2018-03-18] MEDS: PRENATAL VITAMINS W/ FOLIC ACID TABLET (FP) PO SCH (10:12)
[2018-03-18] MEDS: NICOTINE 21 MG/24 HOURS TOPICAL PATCH TD SCH (10:12)
[2018-03-18] MEDS: METHYL SALICYLATE/MENTHOL OINT 30 GM TUBE TP SCH ×2 (10:13→23:49)
[2018-03-18] MEDS: ACETAMINOPHEN 325 MG TABLET (FP) PO PRN (10:13)
[2018-03-18] MEDS ORDERED: INSULIN (NOVOLOG) ASPART 100 UNITS/ML 10ML VIAL ONE ×3 (12:10→22:39)
[2018-03-18] MEDS: IBUPROFEN 400 MG TABLET (FP) PO PRN (12:11)
[2018-03-18] MEDS: ONDANSETRON *ODT* 4 MG TABLET SL PRN (17:07)
[2018-03-18] MEDS: TRIMETHOBENZAMIDE HCL 200MG/2ML INJ IM PRN (22:17)
--- NOTE | 2018-03-18 22:48 | PN ---
PRAVIN Progress Note Note: Patient was seen and evaluated at bedside with complaint of sudden onset of severe epigastric / left upper quadrant abdominal pain rated at 10/10 and described as constant, with associated chills, nausea and multiple episodes of vomiting. Patient denies fever, headache, dizziness, chest pain, SOB, palpitations, diarrhea, constipation, urinary symptoms. Patient is being transferred to emergency room for further evaluation. Endorsed to Ms. Rekha PULIDO
[2018-03-18 23:07] VITALS: BP 136/80; PULSE 122; TEMP 97.1
[2018-03-18] MEDS: THIAMINE HCL 100 MG TABLET (FP) PO SCH (23:49)
[2018-03-19] MEDS: metFORMIN HCL 500 MG TABLET (FP) PO SCH (07:51)
[2018-03-19] MEDS: INSULIN SLIDING SCALE (NOVOLOG) 1 VIAL SQ SCH (07:53)
== END 2018-03-19 09:00 | disposition short-term general hospital (02) | DRG 895 ==
LOC: YASAS 20:37 → Y3N 22:00 → Y5N 02-26 12:09
PROVIDERS: ATTEND Psychiatry & Neurology Psychiatry
PROC: HZ2ZZZZ Detoxification Services for Substance Abuse Treatment (ICD-10-PCS; principal; 2018-02-21)
PROC: HZ42ZZZ Group Counseling for Substance Abuse Treatment, Cognitive-Behavioral (ICD-10-PCS; 2018-02-26)
DX: F11.23 Opioid dependence with withdrawal (principal); F16.20 Hallucinogen dependence, uncomplicated; F14.20 Cocaine dependence, uncomplicated; F12.20 Cannabis dependence, uncomplicated; F17.210 Nicotine dependence, cigarettes, uncomplicated; F43.10 Post-traumatic stress disorder, unspecified; F90.9 Attention-deficit hyperactivity disorder, unspecified type; F41.8 Other specified anxiety disorders; G47.00 Insomnia, unspecified; E11.65 Type 2 diabetes mellitus with hyperglycemia; G35 Multiple sclerosis; R79.89 Other specified abnormal findings of blood chemistry; R81 Glycosuria; R10.13 Epigastric pain; R10.12 Left upper quadrant pain; R11.2 Nausea with vomiting, unspecified; R68.83 Chills (without fever); Z91.14 Patient's other noncompliance with medication regimen; Z79.4 Long term (current) use of insulin
CPT/HCPCS: 36415; 80048; 80053; 81003; 82962; 85025; 86593; 93005; 93010; Q0162

== ENCOUNTER 2018-03-18 23:43 | Observation (INO) | payer SELFPAY ==
[2018-03-19] MEDS ORDERED: ACETAMINOPHEN 1000 MG/100 ML VIAL (NON FORMULARY) IVPB ONE (00:58)
[2018-03-19] MEDS ORDERED: SODIUM CHLORIDE 1,000 ML IV STA (00:58)
[2018-03-19] MEDS ORDERED: ONDANSETRON 4 MG/2 ML VIAL IVPB ONE (01:00)
[2018-03-19] MEDS ORDERED: PANTOPRAZOLE SODIUM 40 MG VIAL IVPUSH ONE (01:01)
--- NOTE | 2018-03-19 01:01 | PDOC ---
History of Present Illness - General Chief Complaint: Nausea/Vomiting Stated Complaint: VOMITING Time Seen by Provider: 03/19/18 00:42 - History of Present Illness Initial Comments: 03/19/18 01:01 Patient is a 47 year old male brought in from [facility], with past medical history of IDDM, pancreatitis (2002) and Multiple sclerosis (2003) s/p brain and spine surgeries, presented with sudden onset, severe epigastric/LUQ pain that started about 12 hours ago. Patient reported experiencing sudden onset / , constant, cramping epigastric/LUQ pain that started about 12 hours ago, accompanied by chills, nausea and multiple episodes of NBNB vomiting. Patient has been seen at the rehab facility for heroin abuse. Patient denies fever, headache, dizziness, chest pain, SOB, palpitations, diarrhea, constipation, urinary symptoms. PMHx: IDDM, pancreatitis 2/2 hypertriglyceridemia, multiple sclerosis s/p spinal surgeries SHx: smokes marijuana and hashish, reports occasional EtOH use, denies recent heroin use Past History - Past Medical History Allergies/Adverse Reactions: Allergies Allergy/AdvReac Type Severity Reaction Status Date / Time No Known Allergies Allergy Verified 02/21/18 21:40 Home Medications: Ambulatory Orders metFORMIN HCL [Glucophage -] 500 mg PO BID 07/09/15 Anemia: No Asthma: No Cardiac Disorders: No COPD: No Diabetes: Yes (Patient reported IDDM) GI Disorders: No Disorders: No HTN: No Kidney Stones: No Seizures: No - Surgical History Abdominal Surgery: No Appendectomy: No Cardiac Surgery: No Cholecystectomy: No Lung Surgery: No Neurologic Surgery: Yes (FOR HYDROCEPHALUS) Orthopedic Surgery: Yes (SPINAL FUSION AT C5-6 IN 02/2010) - Reproductive History Testicular Surgery: No - Suicide/Smoking/Psychosocial Hx Smoking History: Current every day smoker Have you smoked in the past 12 months: Yes Number of Cigarettes Smoked Daily: 15 Cigars Per Day: 0 'Breaking Loose' booklet given: 03/02/18 Hx Alcohol Use: No Drug/Substance Use Hx: Yes Substance Use Type: Cocaine, Heroin Hx Substance Use Treatment: Yes Abd/GI Specific PMHX - Complaint Specific PMHX Hepatitis: No Pancreatitis: Yes (2002) Review of Systems - Review of Systems Constitutional: Yes: Chills. No: Fever, Weakness, Unintentional Wgt. Loss HEENTM: No: Recent change in vision, Nose Congestion, Difficulty Swallowing Respiratory: No: Cough, Shortness of Breath Cardiac (ROS): No: Chest Pain, Lightheadedness, Palpitations ABD/GI: Yes: Nausea, Vomiting, Abdominal cramping. No: Constipated, Diarrhea, Rectal Bleeding : No: Burning, Dysuria, Discharge Neurological: No: Headache, Numbness, Tingling, Weakness *Physical Exam - Vital Signs 03/19/18 01:58 Vital Signs Period Temp Pulse Resp BP Sys/Jalloh Pulse Ox Last 24 Hr 98.9 F 108 20 108/61 100 - Physical Exam Comments: 03/19/18 01:27 General: awake, alert, oriented, not in acute distress Head: no signs of head trauma HEENT: PERRLA, EOMI, sclerae anicteric, no nasal discharge, nonerythematous oropharynx, dry mucous membranes Neck: soft, supple trachea midline, without thyroid enlargement Lungs: clear to auscultation bilaterally Heart: regular rate and rhythm, normal S1/S2, no m,r,g Abdomen: +tenderness on epigastric and RUQ, +distension, + guarding, NABS Ext: +2 pulses, no peripheral edema, cyanosis or clubbing ED Treatment Course - LABORATORY CBC & Chemistry Diagram: 03/19/18 00:57 03/19/18 03:23 Medical Decision Making - Medical Decision Making 03/19/18 01:54 47 year old with pmh of IDDM, pancreatitis and MS, presented with sudden onset severe epigastric and RUQ pain accompanied by nausea and NBNB vomiting that started a few hours ago. DDx include but not limited to pancreatitis, cholecystitis, ACS, GERD,gastritis CBC, CMP lipase cardiac profile EKG UA, urine tox Abdomen CT without contrast IV protonix 40mg IV Tylenol 1000mg IV LR 03/19/18 04:54 CT scan prelim report: -no nephrolithiasis, ureterolithiasis or obstructive uropathy. No bladder calculi -no bowel obstruction, colitis, diverticulitis, free fluid or free air. Normal appendix -Marked degenerative disc disease L4-L5 -Tiny right inguinal region hernia containing fat. -Bullous changes lung bases. PO challenge -patient refused to eat and has no appetite -still reports abdominal pain.
[2018-03-19] MEDS ORDERED: PANTOPRAZOLE SODIUM 40 MG VIAL IVPB ONE (01:06)
[2018-03-19] MEDS ORDERED: ACETAMINOPHEN INJECTION 100 ML IVPB ONE (01:06)
[2018-03-19] MEDS ORDERED: ONDANSETRON 4 MG/2 ML VIAL ONE (01:07)
[2018-03-19] MEDS ORDERED: PANTOPRAZOLE SODIUM 40 MG/100 ML BAG IVPB ONE (01:07)
[2018-03-19 01:29] LABS: BASO % 0.2 % (0-2.0); EOS % 0.5 % (0-4.5); HEMATOCRIT 44.9 % (35.4-49); MCH 25.8 pg (25.7-33.7); MCHC 33.4 g/dl (32.0-35.9); MEAN CELL VOLUME 77.2 fl (80-96); MEAN PLT VOLUME 7.2 fl (7.5-11.1); MONO % 6.1 % (3.8-10.2); NEUT % 76.2 % (42.8-82.8); PLATELET COUNT 332 K/MM3 (134-434); RBC 5.81 M/mm3 (4.00-5.60); WHITE BLOOD COUNT 17.6 K/mm3 (4.0-10.0)
--- NOTE | 2018-03-19 01:32 | PDOC ---
Attending Attestation - HPI HPI: 03/19/18 01:36 The patient is a 47 year old male, with a significant PMH of IDDM, pancreatitis (2002) and Multiple sclerosis (2003) s/p brain and spine surgeries, who presents to the emergency department with 12 hours of epigastric and left upper quadrant pain. The patient reports a sudden onset of the epigastric/LUQ pain, rated 10/10, described as a crampy pain, constant, with associated chills, nausea and multiple episodes of emesis (non bloody non bilious). The patient denies chest pain, shortness of breath, headache and dizziness. Denies fever, diarrhea and constipation. Denies dysuria, frequency, urgency and hematuria. Allergies: NKA Documentation prepared by Ervin Bernabe, acting as medical affairs specialist for Jayson Knapp MD. <Ervin Bernabe - Last Filed: 03/19/18 01:36> - Resident Resident Name: Shayy Coates - ED Attending Attestation I have performed the following: I have examined & evaluated the patient, The case was reviewed & discussed with the resident, I agree w/resident's findings & plan, Exceptions are as noted - Physicial Exam PE: 03/19/18 02:19 Patient is awake and alert, well-nourished, in moderate distress Normocephalic and atraumatic PERRLA, EOMI, no scleral icterus mm-dry cta rrr abd-soft, + epigastric and luq ttp, bs+ - Medical Decision Making 03/19/18 02:21 47-year-old male with history of hyperlipidemia induced pancreatitis, former IVDA presents with severe abdominal pain, associated with nausea and vomiting. Differential diagnoses includes perforation with free air versus pancreatitis versus peptic ulcer disease versus gastritis versus colitis. We'll obtain CBC/ CMP/lipase/EKG. Will hydrate with LR. We'll administer H2 blockers and antiemetics. Will obtain CT that and pelvis. Likely admission. <Jayson Knapp - Last Filed: 03/19/18 02:22>
[2018-03-19] MEDS ORDERED: LACTATED RINGERS SOLUTION 1,000 ML/1,000 ML INFUS.BAG IV SCH (01:45)
[2018-03-19 04:04] LABS: ALBUMIN 3.7 g/dl (3.4-5.0); ALK PHOS 116 U/L (45-117); ANION GAP 8 MMOL/L (8-16); BILIRUBIN,TOTAL 0.4 mg/dL (0.2-1); BLOOD UREA NITROGEN 27 mg/dL (7-18); CALCIUM 8.3 mg/dL (8.5-10.1); CHLORIDE 105 mmol/L (98-107); CHOLESTEROL 212 mg/dL (50-200); CO2 25 mmol/L (21-32); CREATININE 0.9 mg/dL (0.55-1.3); GLUCOSE,RANDOM 204 mg/dL (74-106); HDL CHOLESTEROL 83 mg/dL (40-60); LIPASE 97 U/L (73-393); POTASSIUM 4.5 mmol/L (3.5-5.1); SGOT/AST 24 U/L (15-37); SGPT/ALT 33 U/L (13-61); SODIUM 138 mmol/L (136-145); TOT PROT 6.5 g/dl (6.4-8.2); TRIGLYCERIDES 115 mg/dL (0-150)
[2018-03-19 05:12] LABS: URINE APPEARANCE CLEAR; URINE BILIRUBIN NEGATIVE (<2.0 mg/dL); URINE COLOR YELLOW; URINE GLUCOSE (UA) NEGATIVE (NEGATIVE); URINE KETONE NEGATIVE (NEGATIVE); URINE LEUK ESTERASE NEGATIVE (NEGATIVE); URINE NITRITE NEGATIVE (NEGATIVE); URINE PROTEIN NEGATIVE (NEGATIVE); URINE UROBILINOGEN NEGATIVE mg/dL (0.2-1.0)
[2018-03-19 05:46] LABS: COCAINE, UR NEGATIVE ng/ml (CUTOFF=300); METHADONE, UR NEGATIVE ng/ml (CUTOFF=300); OPIATES, URI NEGATIVE ng/ml (CUTOFF=300); PHENCYCLIDINE,URINE NEGATIVE ng/ml (CUTOFF=25); URINE AMPHETAMINES NEGATIVE ng/ml (CUTOFF=500); URINE BARBITURATES NEGATIVE ng/ml (CUTOFF=200); URINE BENZODIAZEPINES NEGATIVE ng/ml (CUTOFF=200)
[2018-03-19 06:27] LABS: ACANTHOCYTES 0; ANISOCYTOSIS 0; HELMET CELLS 0; HOWELL-JOLLY BODIES 0; MACROCYTOSIS 0; OVALOCYTE 0; PLATELET ESTIMATE NORMAL; ROULEAU 0; SICKELED CELLS 0; TARGET CELLS 0; TEAR DROP CELLS 0; TOXIC GRANULATION 0
[2018-03-19] MEDS ORDERED: KETOROLAC TROMETHAMINE 15 MG/ML VIAL IVPUSH ONE (06:42)
--- NOTE | 2018-03-19 07:08 | PDOC ---
*Physical Exam - Vital Signs Last Vital Signs Temp Pulse Resp BP Pulse Ox 98.9 F 108 H 20 108/61 100 03/18/18 23:50 03/18/18 23:50 03/18/18 23:50 03/18/18 23:50 03/18/18 23:50 ED Treatment Course - LABORATORY CBC & Chemistry Diagram: 03/20/18 05:50 03/20/18 05:50 - ADDITIONAL ORDERS Additional order review: Laboratory Results 03/19/18 03/19/18 03/19/18 04:45 04:45 03:23 Sodium 138 Potassium 4.5 Chloride 105 Carbon Dioxide 25 Anion Gap 8 BUN 27 H Creatinine 0.9 Creat Clearance w eGFR > 60 Random Glucose 204 H Calcium 8.3 L Total Bilirubin 0.4 AST 24 ALT 33 Alkaline Phosphatase 116 Creatine Kinase 666 H Creatine Kinase Index 1.0 CK-MB (CK-2) 7.1 H Troponin I < 0.02 Total Protein 6.5 Albumin 3.7 Triglycerides 115 Cholesterol 212 H Total LDL Cholesterol 101 H HDL Cholesterol 83 H Lipase 97 Urine Color Yellow Urine Appearance Clear Urine pH 5.0 Ur Specific [place] 1.027 Urine Protein Negative Urine Glucose (UA) Negative Urine Ketones Negative Urine Blood Negative Urine Nitrite Negative Urine Bilirubin Negative Urine Urobilinogen Negative Ur Leukocyte Esterase Negative Opiates Screen Negative Methadone Screen Negative Barbiturate Screen Negative Phencyclidine Screen Negative Ur Amphetamines Screen Negative MDMA (Ecstasy) Screen Negative Benzodiazepines Screen Negative Cocaine Screen Negative U Marijuana (THC) Screen Negative 03/19/18 00:57 Sodium Cancelled Potassium Cancelled Chloride Cancelled Carbon Dioxide Cancelled Anion Gap Cancelled BUN Cancelled Creatinine Cancelled Creat Clearance w eGFR Cancelled Random Glucose Cancelled Calcium Cancelled Total Bilirubin Cancelled AST Cancelled ALT Cancelled Alkaline Phosphatase Cancelled Creatine Kinase Cancelled Creatine Kinase Index CK-MB (CK-2) Troponin I Cancelled Total Protein Cancelled Albumin Cancelled Triglycerides Cholesterol Total LDL Cholesterol HDL Cholesterol Lipase Cancelled Urine Color Urine Appearance Urine pH Ur Specific [place] Urine Protein Urine Glucose (UA) Urine Ketones Urine Blood Urine Nitrite Urine Bilirubin Urine Urobilinogen Ur Leukocyte Esterase Opiates Screen Methadone Screen Barbiturate Screen Phencyclidine Screen Ur Amphetamines Screen MDMA (Ecstasy) Screen Benzodiazepines Screen Cocaine Screen U Marijuana (THC) Screen 03/19/18 00:57 RBC 5.81 H MCV 77.2 L MCHC 33.4 RDW 15.0 MPV 7.2 L Neutrophils % 76.2 D Lymphocytes % 17.0 D Monocytes % 6.1 Eosinophils % 0.5 Basophils % 0.2 - Medications Given in the ED: ED Medications Discontinued Medications Generic Name Dose Route Start Last Admin Trade Name Kelsey PRN Reason Stop Dose Admin Acetaminophen 1,000 mg 03/19/18 00:58 03/19/18 01:30 Ofirmev Injection - IVPB 03/19/18 00:59 1,000 mg ONCE ONE Administration Sodium Chloride 1,000 mls @ 1,000 mls/hr 03/19/18 00:58 03/19/18 01:30 Normal Saline - IV 03/19/18 01:57 1,000 mls/hr ASDIR STA Administration Ondansetron HCl 8 mg 03/19/18 01:00 03/19/18 01:30 Zofran Injection IVPB 03/19/18 01:01 8 mg ONCE ONE Administration Pantoprazole Sodium 40 mg 03/19/18 01:01 03/19/18 01:31 Protonix Iv IVPUSH 03/19/18 01:02 Not Given ONCE ONE Pantoprazole Sodium 40 mg 03/19/18 01:06 03/19/18 01:51 Protonix Iv IVPB 03/19/18 01:07 40 mg ONCE ONE Administration Medical Decision Making - Medical Decision Making I have assumed care of the patient from Dr. Coates, who has discussed the clinical presentation, work-up, and ED course thus far. I have reviewed the patients medical record and ED course thus far. Patient pending repeat CK and Trop I for likely admission 03/19/18 07:09 Plan for admission for PO intolerance and elevated CK/ACS r/o Dispo: admit *DC/Admit/Observation/Transfer Diagnosis at time of Disposition: Nausea and vomiting Qualifiers: Vomiting Intractability: unspecified Type 2 diabetes mellitus with hyperglycemia Qualifiers: Diabetes mellitus [employer] insulin use: unspecified fdc insulin use status Qualified Code(s): E11.65 - Type 2 diabetes mellitus with hyperglycemia - Discharge Dispostion Disposition: I.P. ALCOHOL/SUBS ABUSE REHAB Condition at time of disposition: Stable Decision to Admit order: Yes - Referrals - Patient Instructions - Post Discharge Activity
[2018-03-19] MEDS ORDERED: KETOROLAC TROMETHAMINE 15 MG/ML VIAL ONE (07:13)
[2018-03-19] MEDS ORDERED: ONDANSETRON 4 MG/2 ML VIAL IVPUSH PRN (08:32)
--- NOTE | 2018-03-19 08:44 | HP ---
CHIEF COMPLAINT: abdominal pain PCP: HISTORY OF PRESENT ILLNESS: This is a 47 year old male with a history of alcohol and substance abuse, pancreatitis, DM, who was sent over form [facility] due to nausea/ NBNB vomiting and abdominal pain that started around 6pm last night. Pain is mostly left upper quadrant, stab like pain, 7/10 that radiates to left lower back and worse with vomiting. Patient also endorses chills and two episodes of NBNB diarrhea. Denies fever, alcohol or drug intake while at [facility], chest pain, sob, melena , dysuria, sore throat or sick contacts. ER course was notable for: Elevated CK, troponin negative, leukocytosis. Abdomen /pelvic CT was negative for acute pathology. Recent Travel: no PAST MEDICAL HISTORY: pancreatitis secondary to drug induced hypertriglyceridemia , DM on insulin, alcohol abuse, opioid use sniffing heroin, hydrocephalus PAST SURGICAL HISTORY: c4-5 fusion, [id number], craniotomy ? from hydrocephalus Social History: Smoking:yes half ppd Alcohol:yes ; now at [facility] Drugs: yes, sniff heroin Family History: Allergies No Known Allergies Allergy (Verified 02/21/18 21:40) HOME MEDICATIONS: Home Medications Medication Instructions Recorded metFORMIN HCL [Glucophage -] 500 mg PO BID 07/09/15 REVIEW OF SYSTEMS CONSTITUTIONAL: Positive:chills, Absent: fever, diaphoresis, generalized weakness, malaise, loss of appetite, weight change HEENT: Absent: rhinorrhea, nasal congestion, throat pain, throat swelling, difficulty swallowing, mouth swelling, ear pain, eye pain, visual changes CARDIOVASCULAR: Absent: chest pain, syncope, palpitations, irregular heart rate, lightheadedness , peripheral edema RESPIRATORY: Absent: cough, shortness of breath, dyspnea with exertion, orthopnea, wheezing, stridor, hemoptysis GASTROINTESTINAL: Positive: abdominal pain,, nausea, vomiting, diarrhea Absent: abdominal distension, constipation, melena, hematochezia GENITOURINARY: Absent: dysuria, frequency, urgency, hesitancy, hematuria, flank pain, genital pain MUSCULOSKELETAL: Absent: myalgia, arthralgia, joint swelling, back pain, neck pain SKIN: Absent: rash, itching, pallor HEMATOLOGIC/IMMUNOLOGIC: Absent: easy bleeding, easy bruising, lymphadenopathy, frequent infections ENDOCRINE: Absent: unexplained weight gain, unexplained weight loss, heat intolerance, cold intolerance NEUROLOGIC: Absent: headache, focal weakness or paresthesias, dizziness, unsteady gait, seizure, mental status changes, bladder or bowel incontinence PSYCHIATRIC: Absent: anxiety, depression, suicidal or homicidal ideation, hallucinations. PHYSICAL EXAMINATION Vital Signs - 24 hr 03/18/18 03/19/18 23:50 08:20 Temperature 98.9 F 98.3 F Pulse Rate 108 H Pulse Rate [ 68 Left] Respiratory 20 17 Rate Blood Pressure 108/61 Blood Pressure 121/76 [Left Arm] O2 Sat by Pulse 100 Oximetry (%) GENERAL: Awake, alert, and fully oriented, in no acute distress. HEAD: Normal with no signs of trauma. EYES: Pupils equal, round and reactive to light, extraocular movements intact, sclera anicteric, conjunctiva clear. No lid lag.] LUNGS: Breath sounds equal, clear to auscultation bilaterally. No wheezes, and no crackles. No accessory muscle use. HEART: Regular rate and rhythm, normal S1 and S2 without murmur, rub or gallop. ABDOMEN: tenses up with palpation and touch, tenderness to palpation of LUQ with deep inspiration, mild tenderness to mid epigastrium , +BS MUSCULOSKELETAL: Normal range of motion at all joints. No bony deformities or tenderness. No CVA tenderness. UPPER EXTREMITIES: 2+ pulses, warm, well-perfused. No cyanosis. No clubbing. No peripheral edema. LOWER EXTREMITIES: 2+ pulses, warm, well-perfused. No calf tenderness. No peripheral edema. NEUROLOGICAL: Cranial nerves II-XII intact. Normal speech. PSYCHIATRIC: Cooperative. Good eye contact. Appropriate mood and affect. SKIN: Warm, dry, normal turgor, no rashes or lesions noted, normal capillary refill. Laboratory Results - last 24 hr 03/19/18 03/19/18 03/19/18 00:57 00:57 03:23 WBC 17.6 H RBC 5.81 H Hgb 15.0 Hct 44.9 MCV 77.2 L MCH 25.8 MCHC 33.4 RDW 15.0 Plt Count 332 MPV 7.2 L Absolute Neuts (auto) 13.4 H Neutrophils % 76.2 D Neutrophils % (Manual) 62.0 D Band Neutrophils % 12.0 Lymphocytes % 17.0 D Lymphocytes % (Manual) 10.0 D Monocytes % 6.1 Monocytes % (Manual) 6 Eosinophils % 0.5 Eosinophils % (Manual) 0.0 D Basophils % 0.2 Basophils % (Manual) 0.0 Myelocytes % (Man) 0 Promyelocytes % (Man) 0 Blast Cells % (Manual) 0 Nucleated RBC % 0 Metamyelocytes 0 Hypochromia 0 Toxic Granulation 0 Dohle Bodies 0 Platelet Estimate Normal Polychromasia 0 Poikilocytosis 0 Basophilic Stippling 0 Anisocytosis 0 Microcytosis 0 Macrocytosis 0 Spherocytes 0 Sickle Cells 0 Target Cells 0 Tear Drop Cells 0 Ovalocytes 0 Stomatocytes 0 Helmet Cells 0 [place] Bodies 0 [place] Rings 0 [place] Cells 0 Acanthocytes (Spur) 0 Rouleaux 0 Fragmented RBCs 0 Schistocytes 0 Sodium Cancelled 138 Potassium Cancelled 4.5 Chloride Cancelled 105 Carbon Dioxide Cancelled 25 Anion Gap Cancelled 8 BUN Cancelled 27 H Creatinine Cancelled 0.9 Creat Clearance w eGFR Cancelled > 60 Random Glucose Cancelled 204 H Calcium Cancelled 8.3 L Total Bilirubin Cancelled 0.4 AST Cancelled 24 ALT Cancelled 33 Alkaline Phosphatase Cancelled 116 Creatine Kinase Cancelled 666 H Creatine Kinase Index 1.0 CK-MB (CK-2) 7.1 H Troponin I Cancelled < 0.02 Total Protein Cancelled 6.5 Albumin Cancelled 3.7 Triglycerides 115 Cholesterol 212 H Total LDL Cholesterol 101 H HDL Cholesterol 83 H Lipase Cancelled 97 Urine Color Urine Appearance Urine pH Ur Specific [place] Urine Protein Urine Glucose (UA) Urine Ketones Urine Blood Urine Nitrite Urine Bilirubin Urine Urobilinogen Ur Leukocyte Esterase Opiates Screen Methadone Screen Barbiturate Screen Phencyclidine Screen Ur Amphetamines Screen MDMA (Ecstasy) Screen Benzodiazepines Screen Cocaine Screen U Marijuana (THC) Screen 03/19/18 03/19/18 03/19/18 04:45 04:45 06:45 WBC RBC Hgb Hct MCV MCH MCHC RDW Plt Count MPV Absolute Neuts (auto) Neutrophils % Neutrophils % (Manual) Band Neutrophils % Lymphocytes % Lymphocytes % (Manual) Monocytes % Monocytes % (Manual) Eosinophils % Eosinophils % (Manual) Basophils % Basophils % (Manual) Myelocytes % (Man) Promyelocytes % (Man) Blast Cells % (Manual) Nucleated RBC % Metamyelocytes Hypochromia Toxic Granulation Dohle Bodies Platelet Estimate Polychromasia Poikilocytosis Basophilic Stippling Anisocytosis Microcytosis Macrocytosis Spherocytes Sickle Cells Target Cells Tear Drop Cells Ovalocytes Stomatocytes Helmet Cells [place] Bodies [place] Rings [place] Cells Acanthocytes (Spur) Rouleaux Fragmented RBCs Schistocytes Sodium Potassium Chloride Carbon Dioxide Anion Gap BUN Creatinine Creat Clearance w eGFR Random Glucose Calcium Total Bilirubin AST ALT Alkaline Phosphatase Creatine Kinase 809 H Creatine Kinase Index 0.8 CK-MB (CK-2) 6.8 H Troponin I < 0.02 Total Protein Albumin Triglycerides Cholesterol Total LDL Cholesterol HDL Cholesterol Lipase Urine Color Yellow Urine Appearance Clear Urine pH 5.0 Ur Specific [place] 1.027 Urine Protein Negative Urine Glucose (UA) Negative Urine Ketones Negative Urine Blood Negative Urine Nitrite Negative Urine Bilirubin Negative Urine Urobilinogen Negative Ur Leukocyte Esterase Negative Opiates Screen Negative Methadone Screen Negative Barbiturate Screen Negative Phencyclidine Screen Negative Ur Amphetamines Screen Negative MDMA (Ecstasy) Screen Negative Benzodiazepines Screen Negative Cocaine Screen Negative U Marijuana (THC) Screen Negative 03/19/18 06:45 WBC RBC Hgb Hct MCV MCH MCHC RDW Plt Count MPV Absolute Neuts (auto) Neutrophils % Neutrophils % (Manual) Band Neutrophils % Lymphocytes % Lymphocytes % (Manual) Monocytes % Monocytes % (Manual) Eosinophils % Eosinophils % (Manual) Basophils % Basophils % (Manual) Myelocytes % (Man) Promyelocytes % (Man) Blast Cells % (Manual) Nucleated RBC % Metamyelocytes Hypochromia Toxic Granulation Dohle Bodies Platelet Estimate Polychromasia Poikilocytosis Basophilic Stippling Anisocytosis Microcytosis Macrocytosis Spherocytes Sickle Cells Target Cells Tear Drop Cells Ovalocytes Stomatocytes Helmet Cells [place] Bodies [place] Rings [place] Cells Acanthocytes (Spur) Rouleaux Fragmented RBCs Schistocytes Sodium Potassium Chloride Carbon Dioxide Anion Gap BUN Creatinine Creat Clearance w eGFR Random Glucose Calcium Total Bilirubin AST ALT Alkaline Phosphatase Creatine Kinase 814 H Creatine Kinase Index 0.8 CK-MB (CK-2) 7.0 H Troponin I Total Protein Albumin Triglycerides Cholesterol Total LDL Cholesterol HDL Cholesterol Lipase Urine Color Urine Appearance Urine pH Ur Specific [place] Urine Protein Urine Glucose (UA) Urine Ketones Urine Blood Urine Nitrite Urine Bilirubin Urine Urobilinogen Ur Leukocyte Esterase Opiates Screen Methadone Screen Barbiturate Screen Phencyclidine Screen Ur Amphetamines Screen MDMA (Ecstasy) Screen Benzodiazepines Screen Cocaine Screen U Marijuana (THC) Screen ASSESSMENT/PLAN: This is a 47 year old male with a history of substance abuse, pancreatitis and DM, who was sent over form [facility] due to n/v/d/ and abdominal pain. CT abdomen was negative. Lipase wnl. FOund to have elevated CK with leucocytosis. This may may represent an acute gastrointestional viral illness. #N/V/D with abdominal pain with leukocytosis: -most likely stress reaction from vomiting vs acute viral illness, possible GERD or gastritis -IVF -improved after zofran, po trial -protonix -no more episodes of diarrhea/vomiting for the past 8hrs; monitor electrolytes -abdominal imaging is negative -no antibiotics needed at this time #elevated CK; most likey secondary to retching/vomiting; less likely rhabdomyolysis; (CK not elevated 5x the normal, no myoglobinuria) -IVF -monitor CK #DM: -insulin ss -bgm VTE:scd GI: protonix Disposition: obs
--- NOTE | 2018-03-19 10:21 | EKG ---
Test Reason : Blood Pressure : / mmHG Vent. Rate : 109 BPM Atrial Rate : 109 BPM P-R Int : 140 ms QRS Dur : 078 ms QT Int : 352 ms P-R-T Axes : 077 065 078 degrees QTc Int : 474 ms SINUS TACHYCARDIA NONSPECIFIC T WAVE ABNORMALITY ABNORMAL ECG WHEN COMPARED WITH ECG OF 21-FEB-2018 23:13, VENT. RATE HAS INCREASED BY 40 BPM Confirmed by SABRINA KAMARA, PIETRO ([id number]) on 03/19/2018 10:21:08 AM Referred By: Confirmed By:PIETRO BENNETT MD
[2018-03-19] MEDS: LACTATED RINGERS SOLUTION 1,000 ML/1,000 ML INFUS.BAG IV SCH ×2 (10:57→20:13)
[2018-03-19] MEDS: PANTOPRAZOLE 40 MG TABLET (FP) PO SCH (11:04)
[2018-03-19] MEDS: INSULIN SLIDING SCALE (NOVOLOG) 1 VIAL SQ SCH ×4 (12:49→22:31)
[2018-03-19] MEDS ORDERED: SODIUM CHLORIDE 500 ML IV STA (13:49)
--- NOTE | 2018-03-19 14:14 | PN ---
Teaching Attending Note Name of Resident: Violeta Owen ATTENDING PHYSICIAN STATEMENT I saw and evaluated the patient. I reviewed the resident's note and discussed the case with the resident. I agree with the resident's findings and plan as documented. SUBJECTIVE: Presented with Abdominal pain, nausea, vomiting, diarrhea. Abdominal pain improving. No further episodes of emesis or diarrhea since transfer to medical floor this am. No fever/chills. No hematemesis. No melena/ hematochezia. OBJECTIVE: Afebrile, Hemodynamically Stable. Last Vital Signs Temp Pulse Resp BP Pulse Ox 98.3 F 85 18 97/56 L 100 03/19/18 12:36 03/19/18 12:36 03/19/18 12:36 03/19/18 12:36 03/18/18 23:50 HEENT - Atraumatic, Normocephalic Neuro - AAO x 3. Tone/Power normal all 4 extremities. Heart - S1, S2, RRR Lungs - clear to auscultation Abdomen - mild LUQ tenderness on deep palpation - no guarding or rebound. Bowel sounds normal. Extremities - no edema. Laboratory Results - last 24 hr 03/19/18 03/19/18 03/19/18 00:57 00:57 03:23 WBC 17.6 H RBC 5.81 H Hgb 15.0 Hct 44.9 MCV 77.2 L MCH 25.8 MCHC 33.4 RDW 15.0 Plt Count 332 MPV 7.2 L Absolute Neuts (auto) 13.4 H Neutrophils % 76.2 D Neutrophils % (Manual) 62.0 D Band Neutrophils % 12.0 Lymphocytes % 17.0 D Lymphocytes % (Manual) 10.0 D Monocytes % 6.1 Monocytes % (Manual) 6 Eosinophils % 0.5 Eosinophils % (Manual) 0.0 D Basophils % 0.2 Basophils % (Manual) 0.0 Myelocytes % (Man) 0 Promyelocytes % (Man) 0 Blast Cells % (Manual) 0 Nucleated RBC % 0 Metamyelocytes 0 Hypochromia 0 Toxic Granulation 0 Dohle Bodies 0 Platelet Estimate Normal Polychromasia 0 Poikilocytosis 0 Basophilic Stippling 0 Anisocytosis 0 Microcytosis 0 Macrocytosis 0 Spherocytes 0 Sickle Cells 0 Target Cells 0 Tear Drop Cells 0 Ovalocytes 0 Stomatocytes 0 Helmet Cells 0 [place] Bodies 0 [place] Rings 0 [place] Cells 0 Acanthocytes (Spur) 0 Rouleaux 0 Fragmented RBCs 0 Schistocytes 0 Sodium Cancelled 138 Potassium Cancelled 4.5 Chloride Cancelled 105 Carbon Dioxide Cancelled 25 Anion Gap Cancelled 8 BUN Cancelled 27 H Creatinine Cancelled 0.9 Creat Clearance w eGFR Cancelled > 60 POC Glucometer Random Glucose Cancelled 204 H Lactic Acid Calcium Cancelled 8.3 L Total Bilirubin Cancelled 0.4 AST Cancelled 24 ALT Cancelled 33 Alkaline Phosphatase Cancelled 116 Creatine Kinase Cancelled 666 H Creatine Kinase Index 1.0 CK-MB (CK-2) 7.1 H Troponin I Cancelled < 0.02 Total Protein Cancelled 6.5 Albumin Cancelled 3.7 Triglycerides 115 Cholesterol 212 H Total LDL Cholesterol 101 H HDL Cholesterol 83 H Lipase Cancelled 97 Urine Color Urine Appearance Urine pH Ur Specific [place] Urine Protein Urine Glucose (UA) Urine Ketones Urine Blood Urine Nitrite Urine Bilirubin Urine Urobilinogen Ur Leukocyte Esterase Opiates Screen Methadone Screen Barbiturate Screen Phencyclidine Screen Ur Amphetamines Screen MDMA (Ecstasy) Screen Benzodiazepines Screen Cocaine Screen U Marijuana (THC) Screen 03/19/18 03/19/18 03/19/18 04:45 04:45 06:45 WBC RBC Hgb Hct MCV MCH MCHC RDW Plt Count MPV Absolute Neuts (auto) Neutrophils % Neutrophils % (Manual) Band Neutrophils % Lymphocytes % Lymphocytes % (Manual) Monocytes % Monocytes % (Manual) Eosinophils % Eosinophils % (Manual) Basophils % Basophils % (Manual) Myelocytes % (Man) Promyelocytes % (Man) Blast Cells % (Manual) Nucleated RBC % Metamyelocytes Hypochromia Toxic Granulation Dohle Bodies Platelet Estimate Polychromasia Poikilocytosis Basophilic Stippling Anisocytosis Microcytosis Macrocytosis Spherocytes Sickle Cells Target Cells Tear Drop Cells Ovalocytes Stomatocytes Helmet Cells [place] Bodies [place] Rings [place] Cells Acanthocytes (Spur) Rouleaux Fragmented RBCs Schistocytes Sodium Potassium Chloride Carbon Dioxide Anion Gap BUN Creatinine Creat Clearance w eGFR POC Glucometer Random Glucose Lactic Acid Calcium Total Bilirubin AST ALT Alkaline Phosphatase Creatine Kinase 809 H Creatine Kinase Index 0.8 CK-MB (CK-2) 6.8 H Troponin I < 0.02 Total Protein Albumin Triglycerides Cholesterol Total LDL Cholesterol HDL Cholesterol Lipase Urine Color Yellow Urine Appearance Clear Urine pH 5.0 Ur Specific [place] 1.027 Urine Protein Negative Urine Glucose (UA) Negative Urine Ketones Negative Urine Blood Negative Urine Nitrite Negative Urine Bilirubin Negative Urine Urobilinogen Negative Ur Leukocyte Esterase Negative Opiates Screen Negative Methadone Screen Negative Barbiturate Screen Negative Phencyclidine Screen Negative Ur Amphetamines Screen Negative MDMA (Ecstasy) Screen Negative Benzodiazepines Screen Negative Cocaine Screen Negative U Marijuana (THC) Screen Negative 03/19/18 03/19/18 03/19/18 06:45 09:05 12:41 WBC RBC Hgb Hct MCV MCH MCHC RDW Plt Count MPV Absolute Neuts (auto) Neutrophils % Neutrophils % (Manual) Band Neutrophils % Lymphocytes % Lymphocytes % (Manual) Monocytes % Monocytes % (Manual) Eosinophils % Eosinophils % (Manual) Basophils % Basophils % (Manual) Myelocytes % (Man) Promyelocytes % (Man) Blast Cells % (Manual) Nucleated RBC % Metamyelocytes Hypochromia Toxic Granulation Dohle Bodies Platelet Estimate Polychromasia Poikilocytosis Basophilic Stippling Anisocytosis Microcytosis Macrocytosis Spherocytes Sickle Cells Target Cells Tear Drop Cells Ovalocytes Stomatocytes Helmet Cells [place] Bodies [place] Rings [place] Cells Acanthocytes (Spur) Rouleaux Fragmented RBCs Schistocytes Sodium Potassium Chloride Carbon Dioxide Anion Gap BUN Creatinine Creat Clearance w eGFR POC Glucometer 195 Random Glucose Lactic Acid 2.4 H* Calcium Total Bilirubin AST ALT Alkaline Phosphatase Creatine Kinase 814 H Creatine Kinase Index 0.8 CK-MB (CK-2) 7.0 H Troponin I Total Protein Albumin Triglycerides Cholesterol Total LDL Cholesterol HDL Cholesterol Lipase Urine Color Urine Appearance Urine pH Ur Specific [place] Urine Protein Urine Glucose (UA) Urine Ketones Urine Blood Urine Nitrite Urine Bilirubin Urine Urobilinogen Ur Leukocyte Esterase Opiates Screen Methadone Screen Barbiturate Screen Phencyclidine Screen Ur Amphetamines Screen MDMA (Ecstasy) Screen Benzodiazepines Screen Cocaine Screen U Marijuana (THC) Screen Current Medications Generic Name Dose Route Start Last Admin Trade Name Freq PRN Reason Stop Dose Admin Acetaminophen 650 mg 03/19/18 08:32 Tylenol - PO Q4H PRN PAIN Lactated Ringer's 1,000 ml in 1,000 mls @ 150 mls/hr 03/19/18 08:45 03/19/18 10:57 Lactated Ringers Solution IV 150 mls/hr ASDIR LAZARO Administration Sodium Chloride 500 mls @ 500 mls/hr 03/19/18 13:49 Normal Saline - IV 03/19/18 14:48 ASDIR STA Insulin Aspart 1 vial 03/19/18 11:00 03/19/18 12:49 Novolog Vial Sliding Scale - SQ Not Given ACHS [facility] Protocol Ondansetron HCl 4 mg 03/19/18 08:32 Zofran Injection IVPUSH Q6H PRN NAUSEA Pantoprazole Sodium 40 mg 03/19/18 10:00 03/19/18 11:04 Protonix - PO 40 mg DAILY LAZARO Administration ASSESSMENT AND PLAN: 47 year old male with history of PTSD, DM 2, Multi-substance abuse including Heroin, Cannabis, and Alcohol, Anxiety/Depression, Multiple Sclerosis, History of Pancreatitis (2002), transferred from in-patient rehab facility [facility] with complaints of rapid onset LUQ cramping abdominal discomfort radiating around to back, severity 8-9/10 with associated nausea and vomiting, which was non-bloody and non-bilious. Associated diarrhea - no melena or hematochezia. Symptoms appear to be resolving. Complains of chills but no fever. 1. Viral Gastroenteritis - appears to be resolving. Leukocytosis of 17.[address] A/P - no acute intra-abdominal findings. No further episodes of emesis or diarrhea since arriving on medical floor. Stool for Culture and Cdiff if any further diarrhea. Currently Afebrile, Hemodynamically stable. Will give IV hydration and anti-emetics if required. 2. DM 2 Normally on Metformin, Levemir 30, and s/scale at home. No oral intake yet today - will maintain on s/scale for now until oral intake resumes. 3. Elevated CPK - will hydrate and monitor CPK levels for Rhabdomyolysis. 4. History of Multiple Sclerosis - Stable. Previously on treatment as per patient. No neurological deficits. No longer follows with Neurology. 5. Anxiety/Depression/PTSD - appears stable. Further management as per out- patient Psychiatry. 6. Polysubstance Abuse - currently undergoing in-patient rehab. Urine toxicology negative. GI Px - Protonix DVT Px - Lovenox SQ
[2018-03-19] MEDS: ENOXAPARIN NA (PORCINE) 40 MG/0.4 ML DISP.SYRIN SQ SCH (15:36)
[2018-03-19 15:38] LABS: MAGNESIUM 1.8 mg/dL (1.8-2.4); PHOSPHOROUS 4.1 mg/dL (2.5-4.9)
[2018-03-19 18:59] VITALS: BMI 25.2
[2018-03-20] MEDS: LACTATED RINGERS SOLUTION 1,000 ML/1,000 ML INFUS.BAG IV SCH ×2 (03:13→12:33)
[2018-03-20] MEDS: INSULIN SLIDING SCALE (NOVOLOG) 1 VIAL SQ SCH ×3 (07:10→17:18)
[2018-03-20] MEDS: ACETAMINOPHEN 325 MG TABLET (FP) PO PRN ×2 (07:11→14:48)
[2018-03-20 07:17] LABS: BASO % 0.2 % (0-2.0); EOS % 3.8 % (0-4.5); HEMATOCRIT 36.6 % (35.4-49); HEMOGLOBIN 12.5 GM/dL (11.7-16.9); LYMPH % 46.7 % (8-40); MCH 26.6 pg (25.7-33.7); MCHC 34.3 g/dl (32.0-35.9); MEAN CELL VOLUME 77.7 fl (80-96); MEAN PLT VOLUME 6.9 fl (7.5-11.1); MONO % 6.6 % (3.8-10.2); NEUT % 42.7 % (42.8-82.8); PLATELET COUNT 264 K/MM3 (134-434); RBC 4.71 M/mm3 (4.00-5.60); RDW 14.8 % (11.9-15.9); WHITE BLOOD COUNT 7.5 K/mm3 (4.0-10.0)
[2018-03-20] MEDS ORDERED: INSULIN (NOVOLOG) ASPART 100 UNITS/ML 10ML VIAL ONE ×2 (07:44→10:58)
[2018-03-20 08:20] LABS: ALBUMIN 3.4 g/dl (3.4-5.0); ALK PHOS 107 U/L (45-117); ANION GAP 6 MMOL/L (8-16); BILIRUBIN,TOTAL 0.5 mg/dL (0.2-1); BLOOD UREA NITROGEN 14 mg/dL (7-18); CALCIUM 8.1 mg/dL (8.5-10.1); CHLORIDE 104 mmol/L (98-107); CO2 26 mmol/L (21-32); PHOSPHOROUS 2.6 mg/dL (2.5-4.9); POTASSIUM 4.1 mmol/L (3.5-5.1); SGOT/AST 19 U/L (15-37); SGPT/ALT 26 U/L (13-61); SODIUM 136 mmol/L (136-145); TOT PROT 5.9 g/dl (6.4-8.2)
[2018-03-20 09:26] LABS: GLUCOSE,RANDOM 304 mg/dL (74-106)
[2018-03-20] MEDS: PANTOPRAZOLE 40 MG TABLET (FP) PO SCH (11:13)
[2018-03-20] MEDS: ENOXAPARIN NA (PORCINE) 40 MG/0.4 ML DISP.SYRIN SQ SCH (11:13)
[2018-03-20] MEDS ORDERED: INSULIN (LEVEMIR) 100 UNITS/ML UNITS SQ SCH (12:30)
[2018-03-20] MEDS ORDERED: INSULIN (LEVEMIR) 100 UNITS/ML UNITS SQ ONE (13:00)
[2018-03-20] MEDS ORDERED: BUPRENORPHINE/NALOXONE 2 MG/0.5 MG FILM PACKET SL ONE (16:01)
--- NOTE | 2018-03-20 18:28 | DS ---
Physical Examination Vital Signs: Vital Signs Temperature 98.3 F 03/20/18 14:32 Pulse Rate 92 H 03/20/18 14:32 Respiratory Rate 20 03/20/18 16:00 Blood Pressure 130/81 03/20/18 14:32 O2 Sat by Pulse Oximetry (%) 97 03/20/18 16:00 Findings/Remarks: Afebrile, Hemodynamically Stable Last Vital Signs Temp Pulse Resp BP Pulse Ox 98.3 F 92 H 20 130/81 97 03/20/18 14:32 03/20/18 14:32 03/20/18 16:00 03/20/18 14:32 03/20/18 16:00 HEENT - Atraumatic, Normocephalic Heart - S1, S2, RRR Lungs - clear to auscultation Abdomen- Soft, mild tenderness LUQ. No guarding or rebound. Bowel Sounds normal. Extremities - no edema. No calf tenderness. Labs: CBC, BMP 03/20/18 05:50 03/20/18 05:50 Discharge Summary Reason For Visit: ACUTE PANCREATITIS,LEUKOCYTOSIS Current Active Problems Gastroenteritis (Acute) Hospital Course: 47 year old male with history of PTSD, DM 2, Multi-substance abuse including Heroin, Cannabis, and Alcohol, Anxiety/Depression, Multiple Sclerosis, History of Pancreatitis (2002), transferred from in-patient rehab facility [facility] to [facility] ED on 03/19 with complaints of rapid onset LUQ cramping abdominal discomfort radiating around to back, severity 8-9/10 with associated nausea and vomiting, which was non-bloody and non-bilious. Associated diarrhea - no melena or hematochezia. CT A/P showed no significant acute intra-abdominal findings. Symptoms resolved with conservative measures and IV hydration overnight. No further diarrhea/nausea/vomiting since admission. He is tolerating adequate oral intake without GI upset, fevers, or chills. He is medically stable for discharge. 1. Viral Gastroenteritis - resolved. Initial Leukocytosis of 17.6 down to 7.[address] A/P - no acute intra-abdominal findings. No further episodes of emesis or diarrhea since arriving on medical floor. Afebrile, Hemodynamically stable. Medically stable for discharge back to [facility]. 2. DM 2 Resumed on Metformin, Levemir 15 units twice daily, and s/scale before meals and before bedtime. 3. Mildly elevated CPK on presentation - improved with IV hydration (below the threshold for Rhabdomyolysis). 4. History of Multiple Sclerosis - Stable. Previously on treatment as per patient. No neurological deficits. No longer follows with Neurology. 5. Anxiety/Depression/PTSD - appears stable. Further management as per out- patient Psychiatry. 6. Polysubstance Abuse including Heroin, Cannabis, and Alcohol - transferred from [facility] where he was undergoing in-patient detox/rehab. Urine toxicology negative. On Suboxone. Medically discharged back to [facility]. Condition: Improved - Instructions Diet, Activity, Other Instructions: Diabetic Diet Keep well hydrated Referrals: Germán Marte MD [Staff Physician] - 1 Week Disposition: HOME - Home Medications Comprehensive Discharge Medication List: Ambulatory Orders metFORMIN HCL [Glucophage -] 500 mg PO BID 07/09/15 Insulin Detemir [Levemir Flextouch] 15 unit SQ BID 03/20/18 Suboxone 2Mg/0.5MG Sl Film - 1 applic PO BID 03/20/18 This patient is new to me today: No Emergency Visit: Yes ED Registration Date: 03/19/18 Care time: The patient presented to the Emergency Department on the above date and was hospitalized for further evaluation of their emergent condition. Critical Care patient: No - Discharge Referral Referred to [facility] Med P.C.: No
[2018-03-20 18:47] VITALS: BP 129/78; PULSE 80; TEMP 97.9
[2018-03-20] MEDS ORDERED: BUPRENORPHINE/NALOXONE 2 MG/0.5 MG FILM PACKET SL SCH (22:00)
[2018-03-21] MEDS ORDERED: INSULIN (LEVEMIR) 100 UNITS/ML UNITS SQ SCH (07:00)
== END 2018-03-20 19:46 | disposition other institution (70) ==
LOC: JER 23:43 → JERBED 03-19 07:28 → J5S 03-19 09:09
PROC: 3E0333Z Introduction of Anti-inflammatory into Peripheral Vein, Percutaneous Approach (ICD-10-PCS; principal; 2018-03-19)
PROC: 3E033NZ Introduction of Analgesics, Hypnotics, Sedatives into Peripheral Vein, Percutaneous Approach (ICD-10-PCS; 2018-03-19)
PROC: 3E0337Z Introduction of Electrolytic and Water Balance Substance into Peripheral Vein, Percutaneous Approach (ICD-10-PCS; 2018-03-19)
PROC: 3E033GC Introduction of Other Therapeutic Substance into Peripheral Vein, Percutaneous Approach (ICD-10-PCS; 2018-03-19)
PROC: 3E013VG Introduction of Insulin into Subcutaneous Tissue, Percutaneous Approach (ICD-10-PCS; 2018-03-19)
DX: R11.2 Nausea with vomiting, unspecified (principal); A08.39 Other viral enteritis; R19.7 Diarrhea, unspecified; E11.65 Type 2 diabetes mellitus with hyperglycemia; F17.210 Nicotine dependence, cigarettes, uncomplicated; G35 Multiple sclerosis; D72.829 Elevated white blood cell count, unspecified; R74.8 Abnormal levels of other serum enzymes; F41.9 Anxiety disorder, unspecified; F32.9 Major depressive disorder, single episode, unspecified; F43.10 Post-traumatic stress disorder, unspecified; F19.10 Other psychoactive substance abuse, uncomplicated
CPT/HCPCS: 36415; 74176-TC; 80053; 80061; 80307; 81003; 82550; 82553; 82962; 83605; 83690; 83721; 83735; 84100; 84484; 85025; 93005; 93010; 99282-25; G0378; J0131; J7030

== ENCOUNTER 2018-03-20 20:46 | Inpatient (IN) | payer OTHER ==
--- NOTE | 2018-03-20 20:13 | PN ---
S Progress Note Note: Pt brought back from [facility] ED by [facility]. Pt A & O x 3, verbalized feeling good. Will be admitted to 3W
[2018-03-20] MEDS ORDERED: hydrOXYzine PAMOATE 25 MG CAPSULE (FP) PO PRN (21:50)
[2018-03-20] MEDS ORDERED: MAG HYDROX/AL HYDROX/SIMETH 30 ML UNIT-DOSE CUP PO PRN (21:50)
[2018-03-20] MEDS ORDERED: NICOTINE POLACRILEX 2 MG GUM BUC PRN (21:50)
[2018-03-20] MEDS ORDERED: LOPERAMIDE HCL 2 MG CAPSULE PO PRN (21:50)
[2018-03-20] MEDS ORDERED: MAGNESIUM CITRATE 300 ML BOTTLE PO PRN (21:50)
[2018-03-20] MEDS ORDERED: MENTHOL/PHENOL 1 EACH UD MM PRN (21:50)
[2018-03-20] MEDS ORDERED: P-EPHED 60MG/TRIPROLIDI 2.5MG TABLET PO PRN (21:50)
[2018-03-20] MEDS ORDERED: MAGNESIUM HYDROX 2400MG/30ML ORAL SUSPENSION 30 ML CUP PO PRN (21:50)
[2018-03-20] MEDS ORDERED: guaiFENesin/D-METHORPHAN HB 10 ML UNIT-DOSE CUPS PO PRN (21:50)
[2018-03-20 22:25] VITALS: BMI 25.0
[2018-03-20] MEDS ORDERED: INSULIN (NOVOLOG) ASPART 100 UNITS/ML 10ML VIAL ONE (22:52)
[2018-03-20] MEDS: INSULIN SLIDING SCALE (NOVOLOG) 1 VIAL SQ SCH (22:55)
[2018-03-20] MEDS: IBUPROFEN 400 MG TABLET (FP) PO PRN (22:56)
[2018-03-20] MEDS: THIAMINE HCL 100 MG TABLET (FP) PO SCH (22:57)
[2018-03-20] MEDS: MELATONIN 5 MG TABLETS PO PRN (22:57)
[2018-03-21] MEDS: INSULIN SLIDING SCALE (NOVOLOG) 1 VIAL SQ SCH ×4 (06:22→21:13)
[2018-03-21] MEDS: PRENATAL VITAMINS W/ FOLIC ACID TABLET (FP) PO SCH (09:53)
[2018-03-21] MEDS: BUPRENORPHINE/NALOXONE 2 MG/0.5 MG FILM PACKET SL SCH ×2 (09:53→21:11)
--- NOTE | 2018-03-21 11:26 | PN ---
[facility] Progress Note Note: pt's anti-glycemics regimen ordered
[2018-03-21] MEDS ORDERED: INSULIN (NOVOLOG) ASPART 100 UNITS/ML 10ML VIAL ONE ×3 (11:43→21:13)
[2018-03-21] MEDS: ACETAMINOPHEN 325 MG TABLET (FP) PO PRN ×2 (11:44→19:11)
[2018-03-21] MEDS: LIDOCAINE 5% TOPICAL PATCH TP SCH (14:04)
[2018-03-21] MEDS: IBUPROFEN 400 MG TABLET (FP) PO PRN ×2 (14:07→21:13)
[2018-03-21] MEDS: metFORMIN HCL 500 MG TABLET (FP) PO SCH (16:50)
[2018-03-21] MEDS: INSULIN (LEVEMIR) 100 UNITS/ML UNITS SQ SCH (16:51)
[2018-03-21] MEDS: LIDOCAINE PATCH REMOVAL MC SCH (21:10)
[2018-03-21] MEDS: THIAMINE HCL 100 MG TABLET (FP) PO SCH (21:11)
[2018-03-22] MEDS: ACETAMINOPHEN 325 MG TABLET (FP) PO PRN (02:31)
[2018-03-22] MEDS: MELATONIN 5 MG TABLETS PO PRN ×2 (02:34→21:48)
[2018-03-22] MEDS: metFORMIN HCL 500 MG TABLET (FP) PO SCH ×2 (07:43→16:50)
[2018-03-22] MEDS: INSULIN SLIDING SCALE (NOVOLOG) 1 VIAL SQ SCH ×4 (07:45→21:51)
[2018-03-22] MEDS: INSULIN (LEVEMIR) 100 UNITS/ML UNITS SQ SCH ×2 (07:46→16:52)
[2018-03-22] MEDS ORDERED: INSULIN (NOVOLOG) ASPART 100 UNITS/ML 10ML VIAL ONE ×4 (07:49→22:04)
[2018-03-22] MEDS: IBUPROFEN 400 MG TABLET (FP) PO PRN (09:42)
[2018-03-22] MEDS: BUPRENORPHINE/NALOXONE 2 MG/0.5 MG FILM PACKET SL SCH ×2 (09:43→21:48)
[2018-03-22] MEDS: LIDOCAINE 5% TOPICAL PATCH TP SCH (09:43)
[2018-03-22] MEDS: PRENATAL VITAMINS W/ FOLIC ACID TABLET (FP) PO SCH (09:43)
[2018-03-22] MEDS: METHYL SALICYLATE/MENTHOL OINT 30 GM TUBE TP SCH ×2 (12:38→22:02)
[2018-03-22] MEDS: CYCLOBENZAPRINE HCL 10 MG TABLET (FP) PO SCH ×2 (13:33→21:48)
--- NOTE | 2018-03-22 14:42 | PN ---
Psychiatric Progress Note Vital Signs: Vital Signs Period Temp Pulse Resp BP Sys/Jalloh Pulse Ox Last 24 Hr 97.9 F 83 18-18 118/77 Date of Session: 03/22/18 Chief Complaint:: Readmission Note HPI: Patient addressing Opioid, Cocaine and Phencyclidine Dependence comorbid with Nicotine Dependence, ADHD and Posttraumatic Stress Disorder ROS: Gastroenteritis, IDDM, MS, Pancreatitis, S/P brain & spinal surgery Current Medications: Active Medications Generic Name Dose Route Start Last Admin Trade Name Freq PRN Reason Stop Dose Admin Acetaminophen 650 mg 03/20/18 21:50 03/22/18 02:31 Tylenol - PO 650 mg Q4H PRN Administration FEVER Al Hydroxide/Mg Hydroxide 30 ml 03/20/18 21:50 Mylanta Oral Suspension - PO Q6H PRN DYSPEPSIA Buprenorphine/Naloxone 1 each 03/21/18 10:00 03/22/18 09:43 Suboxone 2mg/0.5mg Sl Film - SL 1 each BID LAZARO Administration Cyclobenzaprine HCl 10 mg 03/22/18 14:00 03/22/18 13:33 Flexeril - PO 10 mg TID LAZARO Administration Eucalyptus/Menthol/Phenol/Sorbitol 1 each 03/20/18 21:50 Cepastat Lozenge - MM Q4H PRN SORE THROAT Guaifenesin 10 ml 03/20/18 21:50 Robitussin Dm - PO Q6H PRN COUGH Hydroxyzine Pamoate 25 mg 03/20/18 21:50 Vistaril - PO Q4H PRN AGITATION Ibuprofen 400 mg 03/20/18 21:50 03/22/18 09:42 Motrin - PO 400 mg Q6H PRN Administration Pain Level 4-6 Insulin Aspart 1 vial 03/20/18 22:00 03/22/18 11:59 Novolog Vial Sliding Scale - SQ 6 units ACHS LAZARO Administration Protocol Insulin Detemir 15 units 03/21/18 16:30 03/22/18 07:46 Levemir Vial SQ 15 units BIDI LAZARO Administration Lidocaine 1 patch 03/21/18 12:45 03/22/18 09:43 Lidoderm Patch - TP 1 patch DAILY LAZARO Administration Loperamide HCl 4 mg 03/20/18 21:50 Imodium - PO Q6H PRN DIARRHEA Magnesium Citrate 300 ml 03/20/18 21:50 Citroma - PO Q48H PRN CONSTIPATION Magnesium Hydroxide 30 ml 03/20/18 21:50 Milk Of Magnesia - PO DAILY PRN CONSTIPATION Melatonin 5 mg 03/20/18 22:00 03/22/18 02:34 Melatonin PO 5 mg HS PRN Administration INSOMNIA Metformin HCl 500 mg 03/21/18 16:30 03/22/18 07:43 Glucophage - PO 500 mg BIDI LAZARO Administration Methyl Salicylate 1 applic 03/22/18 11:00 03/22/18 12:38 Vlad-Iglesias - TP 1 applic BID LAZARO Administration Miscellaneous 1 each 03/21/18 22:00 03/21/18 21:10 Lidoderm Patch Removal MC Not Given DAILY@2200 LAZARO Nicotine Polacrilex 2 mg 03/20/18 21:50 Nicorette Gum - BUC Q2H PRN NICOTINE REPLACEMENT RX Multivit/Folic Acid/Iron 1 tab 03/21/18 10:00 03/22/18 09:43 Vitamins (Sjr) - PO 1 tab DAILY LAZARO Administration Pseudoephedrine/Triprolidine 1 combo 03/20/18 21:50 Actifed - PO TID PRN NASAL CONGESTION Sertraline HCl 50 mg 03/22/18 14:00 Zoloft - PO DAILY LAZARO Suvorexant 10 mg 03/22/18 22:00 Belsomra PO 03/25/18 21:59 HS PRN INSOMNIA Thiamine HCl 100 mg 03/20/18 22:00 03/21/18 21:11 Vitamin B1 - PO 100 mg HS LAZARO Administration Current Side Effect: No Lab tests ordered: Yes Lab tests reviewed: Yes Provider note:: Patient was transferred back from [facility], [place] where he was admitted on 03/18/18 because of epigastric, right upper quadrant pain asssociated with nausea and non bloody, non bilious vomiting. After appropriate work up he was discharged back to [facility] on 03/20/18 to complete inpatient rehab. He was seen marketing writer and offered no complaint besides asking to be continued on Zoloft and to be ordered a medication different than Remeron fo sleep Total face to face time:: 25 Mental Status Exam - Mental Status Exam Alert and Oriented to: Time, Place, Person Cognitive Function: Fair Patient Appearance: Well Groomed Mood: Hopeful, Euthymic Affect: Appropriate Patient Behavior: Cooperative Speech Pattern: Clear Voice Loudness: Normal Thought Process: Intact, Goal Oriented Thought Disorder: Not Present Hallucinations: Denies Suicidal Ideation: Denies Homicidal Ideation: Denies Insight/Judgement: Fair Sleep: Poorly Appetite: Good Muscle strength/Tone: Normal Gait/Station: Normal Psychiatric Treatment Plan - Problem List (1) Opioid dependence Current Visit: No (2) Cocaine dependence Current Visit: No Comment: . (3) Phencyclidine dependence Current Visit: Yes (4) Nicotine dependence Current Visit: Yes (5) ADHD (attention deficit hyperactivity disorder) Current Visit: No Qualifiers: Attention deficit-hyperactivity disorder type: unspecified Qualified Code(s ): F90.9 - Attention-deficit hyperactivity disorder, unspecified type (6) PTSD (post-traumatic stress disorder) Current Visit: No Comment: . (7) Substance-induced sleep disorder Current Visit: Yes (8) Gastroenteritis Current Visit: No (9) Multiple sclerosis Current Visit: No (10) Type 2 diabetes mellitus with hyperglycemia Current Visit: No Qualifiers: Diabetes mellitus senior living insulin use: unspecified exterminator helper termite insulin use status Qualified Code(s): E11.65 - Type 2 diabetes mellitus with hyperglycemia Initial treatment plan: 1) Continue Zoloft 50 mg po daily. 2) Start Belsomra 10 mg po HS prn for insomnia. 3) Monitor progress
[2018-03-22] MEDS: SERTRALINE HCL 50 MG TABLET (FP) PO SCH (15:36)
[2018-03-22] MEDS: THIAMINE HCL 100 MG TABLET (FP) PO SCH (21:48)
[2018-03-22] MEDS: SUVOREXANT 10 MG TABLET PO PRN (21:50)
[2018-03-22] MEDS: LIDOCAINE PATCH REMOVAL MC SCH (21:52)
[2018-03-23] MEDS: CYCLOBENZAPRINE HCL 10 MG TABLET (FP) PO SCH ×4 (06:04→21:17)
[2018-03-23] MEDS ORDERED: INSULIN (NOVOLOG) ASPART 100 UNITS/ML 10ML VIAL ONE ×3 (07:39→16:30)
[2018-03-23] MEDS: metFORMIN HCL 500 MG TABLET (FP) PO SCH ×2 (07:42→16:47)
[2018-03-23] MEDS: INSULIN SLIDING SCALE (NOVOLOG) 1 VIAL SQ SCH ×4 (07:43→21:16)
[2018-03-23] MEDS: INSULIN (LEVEMIR) 100 UNITS/ML UNITS SQ SCH ×2 (07:43→16:49)
[2018-03-23] MEDS: METHYL SALICYLATE/MENTHOL OINT 30 GM TUBE TP SCH ×2 (09:44→21:19)
[2018-03-23] MEDS: BUPRENORPHINE/NALOXONE 2 MG/0.5 MG FILM PACKET SL SCH ×2 (09:44→21:17)
[2018-03-23] MEDS: SERTRALINE HCL 50 MG TABLET (FP) PO SCH (09:44)
[2018-03-23] MEDS: PRENATAL VITAMINS W/ FOLIC ACID TABLET (FP) PO SCH (09:44)
[2018-03-23] MEDS: LIDOCAINE 5% TOPICAL PATCH TP SCH (09:44)
[2018-03-23] MEDS: IBUPROFEN 400 MG TABLET (FP) PO PRN (09:45)
[2018-03-23] MEDS: ACETAMINOPHEN 325 MG TABLET (FP) PO PRN (11:59)
[2018-03-23] MEDS: SUVOREXANT 10 MG TABLET PO PRN (21:17)
[2018-03-23] MEDS: THIAMINE HCL 100 MG TABLET (FP) PO SCH (21:17)
[2018-03-23] MEDS: LIDOCAINE PATCH REMOVAL MC SCH (21:19)
[2018-03-23] MEDS ORDERED: PT OWN MED DRAWER 7, Y5N ONE (21:19)
[2018-03-24] MEDS: CYCLOBENZAPRINE HCL 10 MG TABLET (FP) PO SCH ×3 (06:21→22:04)
[2018-03-24] MEDS ORDERED: INSULIN (NOVOLOG) ASPART 100 UNITS/ML 10ML VIAL ONE ×3 (07:22→22:08)
[2018-03-24] MEDS: metFORMIN HCL 500 MG TABLET (FP) PO SCH ×3 (07:35→16:44)
[2018-03-24] MEDS: INSULIN SLIDING SCALE (NOVOLOG) 1 VIAL SQ SCH ×4 (07:42→22:10)
[2018-03-24] MEDS: INSULIN (LEVEMIR) 100 UNITS/ML UNITS SQ SCH ×2 (07:42→16:44)
[2018-03-24] MEDS: PRENATAL VITAMINS W/ FOLIC ACID TABLET (FP) PO SCH (09:58)
[2018-03-24] MEDS: BUPRENORPHINE/NALOXONE 2 MG/0.5 MG FILM PACKET SL SCH ×2 (09:58→22:05)
[2018-03-24] MEDS: LIDOCAINE 5% TOPICAL PATCH TP SCH (09:58)
[2018-03-24] MEDS: SERTRALINE HCL 50 MG TABLET (FP) PO SCH (09:58)
[2018-03-24] MEDS: METHYL SALICYLATE/MENTHOL OINT 30 GM TUBE TP SCH ×2 (09:58→22:03)
[2018-03-24] MEDS: IBUPROFEN 400 MG TABLET (FP) PO PRN (11:53)
[2018-03-24] MEDS ORDERED: PT OWN MED DRAWER 7, Y5N ONE (19:23)
[2018-03-24] MEDS: THIAMINE HCL 100 MG TABLET (FP) PO SCH (22:04)
[2018-03-24] MEDS: LIDOCAINE PATCH REMOVAL MC SCH (22:06)
[2018-03-24] MEDS: SUVOREXANT 10 MG TABLET PO PRN (22:06)
[2018-03-25 07:27] VITALS: BP 106/78; PULSE 98; TEMP 97.7
--- NOTE | 2018-03-25 07:28 | PN ---
Psychiatric Progress Note Vital Signs: Vital Signs Period Temp Pulse Resp BP Sys/Jalloh Pulse Ox Last 24 Hr 16-16 Date of Session: 03/25/18 Chief Complaint:: Discharge Note HPI: Patient addressing Opioid, Cocaine and Phencyclidine Dependence comorbid with Nicotine Dependence, AdDHD, Postraumatic Stress Disorder and Substance- Induced Sleep Disorder Current Medications: Active Medications Generic Name Dose Route Start Last Admin Trade Name Freq PRN Reason Stop Dose Admin Acetaminophen 650 mg 03/20/18 21:50 03/23/18 11:59 Tylenol - PO 650 mg Q4H PRN Administration FEVER Al Hydroxide/Mg Hydroxide 30 ml 03/20/18 21:50 Mylanta Oral Suspension - PO Q6H PRN DYSPEPSIA Buprenorphine/Naloxone 1 each 03/21/18 10:00 03/24/18 22:05 Suboxone 2mg/0.5mg Sl Film - SL 1 each BID LAZARO Administration Cyclobenzaprine HCl 10 mg 03/22/18 14:00 03/24/18 22:04 Flexeril - PO 10 mg TID LAZARO Administration Eucalyptus/Menthol/Phenol/Sorbitol 1 each 03/20/18 21:50 Cepastat Lozenge - MM Q4H PRN SORE THROAT Guaifenesin 10 ml 03/20/18 21:50 Robitussin Dm - PO Q6H PRN COUGH Hydroxyzine Pamoate 25 mg 03/20/18 21:50 Vistaril - PO Q4H PRN AGITATION Ibuprofen 400 mg 03/20/18 21:50 03/24/18 11:53 Motrin - PO 400 mg Q6H PRN Administration Pain Level 4-6 Insulin Aspart 1 vial 03/20/18 22:00 03/24/18 22:10 Novolog Vial Sliding Scale - SQ 12 units ACHS LAZARO Administration Protocol Insulin Detemir 15 units 03/21/18 16:30 03/24/18 16:44 Levemir Vial SQ 15 units BIDI LAZARO Administration Lidocaine 1 patch 03/21/18 12:45 03/24/18 09:58 Lidoderm Patch - TP 1 patch DAILY LAZARO Administration Loperamide HCl 4 mg 03/20/18 21:50 Imodium - PO Q6H PRN DIARRHEA Magnesium Citrate 300 ml 03/20/18 21:50 Citroma - PO Q48H PRN CONSTIPATION Magnesium Hydroxide 30 ml 03/20/18 21:50 Milk Of Magnesia - PO DAILY PRN CONSTIPATION Melatonin 5 mg 03/20/18 22:00 03/22/18 21:48 Melatonin PO 5 mg HS PRN Administration INSOMNIA Metformin HCl 500 mg 03/21/18 16:30 03/24/18 16:44 Glucophage - PO 500 mg BIDI LAZARO Administration Methyl Salicylate 1 applic 03/22/18 11:00 03/24/18 22:03 Vlad-Iglesias - TP 1 applic BID LAZARO Administration Miscellaneous 1 each 03/21/18 22:00 03/24/18 22:06 Lidoderm Patch Removal MC 1 each DAILY@2200 LAZARO Administration Nicotine Polacrilex 2 mg 03/20/18 21:50 Nicorette Gum - BUC Q2H PRN NICOTINE REPLACEMENT RX Multivit/Folic Acid/Iron 1 tab 03/21/18 10:00 03/24/18 09:58 Vitamins (Sjr) - PO 1 tab DAILY LAZARO Administration Pseudoephedrine/Triprolidine 1 combo 03/20/18 21:50 Actifed - PO TID PRN NASAL CONGESTION Sertraline HCl 50 mg 03/22/18 14:00 03/24/18 09:58 Zoloft - PO 50 mg DAILY LAZARO Administration Suvorexant 10 mg 03/22/18 22:00 03/24/18 22:06 Belsomra PO 03/25/18 21:59 10 mg HS PRN Administration INSOMNIA Suvorexant 10 mg 03/25/18 22:00 Belsomra PO HS PRN INSOMNIA Thiamine HCl 100 mg 03/20/18 22:00 03/24/18 22:04 Vitamin B1 - PO 100 mg HS LAZARO Administration Current Side Effect: No Lab tests ordered: Yes Lab tests reviewed: Yes Provider note:: Patient will complete this program on 03/26/18. He has met his treatment goals and will continue to address his issues in e learning coordinator residential treatment at a Residence at [address] [place] [address]. Told teletypewriter operator that from his participation in this program, he has learned the importance of addressing his addiction along with his mental health issues. He responded well to Zoloft 50 mg po daily. Script for 30 days supply of this medication will be electronically transmitted to [facility] at [address] [place] [address]. He is stable for discharge on 03/26/18 Total face to face time:: 35 Mental Status Exam - Mental Status Exam Alert and Oriented to: Time, Place, Person Cognitive Function: Fair Patient Appearance: Well Groomed Mood: Hopeful, Euthymic Affect: Appropriate Patient Behavior: Cooperative Speech Pattern: Clear Voice Loudness: Normal Thought Process: Intact, Goal Oriented Thought Disorder: Not Present Hallucinations: Denies Suicidal Ideation: Denies Homicidal Ideation: Denies Insight/Judgement: Fair Sleep: Fair Appetite: Good Muscle strength/Tone: Normal Gait/Station: Normal Psychiatric Treatment Plan - Problem List (1) Opioid dependence Current Visit: No (2) Cocaine dependence Current Visit: No Comment: . (3) Phencyclidine dependence Current Visit: Yes (4) Nicotine dependence Current Visit: Yes (5) ADHD (attention deficit hyperactivity disorder) Current Visit: No Qualifiers: Attention deficit-hyperactivity disorder type: unspecified Qualified Code(s ): F90.9 - Attention-deficit hyperactivity disorder, unspecified type (6) PTSD (post-traumatic stress disorder) Current Visit: No Comment: . (7) Substance-induced sleep disorder Current Visit: Yes (8) Gastroenteritis Current Visit: No (9) Multiple sclerosis Current Visit: No (10) Type 2 diabetes mellitus with hyperglycemia Current Visit: No Qualifiers: Diabetes mellitus jail insulin use: unspecified jail insulin use status Qualified Code(s): E11.65 - Type 2 diabetes mellitus with hyperglycemia Initial treatment plan: Patient will be discharged tomorrow and referred to [facility] for jail treatment
[2018-03-25] MEDS: CYCLOBENZAPRINE HCL 10 MG TABLET (FP) PO SCH ×3 (07:43→21:18)
[2018-03-25] MEDS: INSULIN (LEVEMIR) 100 UNITS/ML UNITS SQ SCH ×2 (07:43→16:59)
[2018-03-25] MEDS: INSULIN SLIDING SCALE (NOVOLOG) 1 VIAL SQ SCH ×4 (07:43→21:23)
[2018-03-25] MEDS: metFORMIN HCL 500 MG TABLET (FP) PO SCH ×2 (07:43→16:59)
[2018-03-25] MEDS: PRENATAL VITAMINS W/ FOLIC ACID TABLET (FP) PO SCH (10:26)
[2018-03-25] MEDS: SERTRALINE HCL 50 MG TABLET (FP) PO SCH (10:26)
[2018-03-25] MEDS: LIDOCAINE 5% TOPICAL PATCH TP SCH (10:27)
[2018-03-25] MEDS: BUPRENORPHINE/NALOXONE 2 MG/0.5 MG FILM PACKET SL SCH ×2 (10:27→21:18)
[2018-03-25] MEDS: METHYL SALICYLATE/MENTHOL OINT 30 GM TUBE TP SCH ×2 (10:28→21:22)
[2018-03-25] MEDS ORDERED: INSULIN (NOVOLOG) ASPART 100 UNITS/ML 10ML VIAL ONE ×3 (11:46→22:16)
[2018-03-25] MEDS: THIAMINE HCL 100 MG TABLET (FP) PO SCH (21:18)
[2018-03-25] MEDS ORDERED: PT OWN MED DRAWER 7, Y5N ONE (21:20)
[2018-03-25] MEDS: ACETAMINOPHEN 325 MG TABLET (FP) PO PRN (21:21)
[2018-03-25] MEDS: SUVOREXANT 10 MG TABLET PO PRN (21:22)
[2018-03-25] MEDS: LIDOCAINE PATCH REMOVAL MC SCH (21:22)
[2018-03-25] MEDS ORDERED: SUVOREXANT 10 MG TABLET PO PRN (22:00)
[2018-03-26] MEDS: CYCLOBENZAPRINE HCL 10 MG TABLET (FP) PO SCH (06:36)
[2018-03-26] MEDS: INSULIN SLIDING SCALE (NOVOLOG) 1 VIAL SQ SCH (07:01)
[2018-03-26] MEDS: metFORMIN HCL 500 MG TABLET (FP) PO SCH (07:01)
[2018-03-26] MEDS: INSULIN (LEVEMIR) 100 UNITS/ML UNITS SQ SCH (07:01)
[2018-03-26] MEDS: BUPRENORPHINE/NALOXONE 2 MG/0.5 MG FILM PACKET SL SCH (10:01)
[2018-03-26] MEDS: SERTRALINE HCL 50 MG TABLET (FP) PO SCH (10:01)
[2018-03-26] MEDS: PRENATAL VITAMINS W/ FOLIC ACID TABLET (FP) PO SCH (10:01)
[2018-03-26] MEDS: METHYL SALICYLATE/MENTHOL OINT 30 GM TUBE TP SCH (10:02)
[2018-03-26] MEDS: LIDOCAINE 5% TOPICAL PATCH TP SCH (10:02)
--- NOTE | 2018-03-26 12:02 | PN ---
[facility] Progress Note Note: PT COMPLETED REHAB AND D/C'D TODAY. PT WILL FOLLOW UP WITH [facility] FOR MEDICAL MANAGEMENT. REFERRED TO [facility] AT [address]. ALERT O X 3. Vital Signs - 24 hr 03/26/18 03/26/18 00:30 03:30 Respiratory 16 16 Rate Laboratory Tests 03/20/18 03/21/18 03/21/18 22:49 06:22 11:41 POC Glucometer 370 220 376 03/21/18 03/21/18 03/22/18 16:49 21:09 06:24 POC Glucometer 300 > 400 250 03/22/18 03/22/18 03/23/18 11:58 16:49 06:00 POC Glucometer 290 348 188 03/23/18 03/23/18 03/23/18 11:55 16:46 21:15 POC Glucometer 406 299 313 03/24/18 03/24/18 03/24/18 06:21 11:51 16:43 POC Glucometer 299 263 386 03/24/18 03/25/18 03/25/18 22:02 11:51 16:57 POC Glucometer 402 268 340 03/25/18 21:16 POC Glucometer 425 NAD PLAN;FOLLOW UP WITH PMD AND AFTERCARE RECOMMENDED.
== END 2018-03-26 10:40 | disposition home or self-care (01) | DRG 895 ==
LOC: YASAS 20:46 → Y3W 20:47
PROVIDERS: ADMIT Psychiatry & Neurology Psychiatry; ATTEND Psychiatry & Neurology Psychiatry
PROC: HZ42ZZZ Group Counseling for Substance Abuse Treatment, Cognitive-Behavioral (ICD-10-PCS; principal; 2018-03-20)
DX: F11.20 Opioid dependence, uncomplicated (principal); F14.20 Cocaine dependence, uncomplicated; F16.20 Hallucinogen dependence, uncomplicated; F19.282 Other psychoactive substance dependence with psychoactive substance-induced sleep disorder; F17.210 Nicotine dependence, cigarettes, uncomplicated; F90.9 Attention-deficit hyperactivity disorder, unspecified type; F43.10 Post-traumatic stress disorder, unspecified; K52.9 Noninfective gastroenteritis and colitis, unspecified; E11.65 Type 2 diabetes mellitus with hyperglycemia
CPT/HCPCS: 82962